=== PATIENT | male | born 1950 | race African-American/Black ===

== ENCOUNTER 2017-01-28 21:08 | Observation (INO) | payer OTHER ==
--- NOTE | 2017-01-28 21:18 | PDOC ---
History of Present Illness - General Chief Complaint: Blood Sugar Problem Stated Complaint: HIGH BLOOD SUGAR Time Seen by Provider: 01/28/17 21:10 History Source: Patient Exam Limitations: No Limitations - History of Present Illness Initial Comments: 01/28/17 22:16 This is a 66-year-old male who comes in complaining of elevated blood sugars times last 4-5 days. As per his daughter who brought him in she said that he Has been having blood sugars in the 3 to 400s. Patient is a type I diabetic and takes insulin for his sugar. Patient otherwise is been complaining of increased urination with the elevated blood sugars. Patient denies any fevers or chills. Patient denies any dysuria or hematuria. Patient denies any cough congestion shortness of breath. Daughter said she noticed that patient seems to be not himself. Patient said that he has been more fatigued and just not feeling well. PAST MEDICAL HISTORY: Type 1 diabetes, hyperlipidemia PAST SURGICAL HISTORY: no significant history FAMILY HISTORY: no pertinant history SOCIAL HISTORY: Pt lives with family and is employed. MEDICATIONS: reviewed ALLERGIES: As per nursing notes Review of Systems General: No fevers or chills, no weakness, no weight loss HEENT: No change in vision. No sore throat,. No ear pain CardioVascular: No chest pain or shortness of breath Respiratory:No cough, or wheezing. Gastrointestinal: no nausea, vomitting, diarrhea or constipation, No rectal bleeding Genitourinary: No dysuria, hematuria, or frequency Musculoskeletal: No joint or muscle pain or swelling Neurologic: No headache, vertigo, dizziness or loss of consciousness Psychiatric: nor depression Skin: No rashes or easy bruising Endocrine: no increased thirst or abnormal weight change Allergic: no skin or latex allergy All other systems reviewed and normal Exam: General: Well-nourished well-developed individual, no acute distress HEENT: Throat: Normal, tonsils normal, no erythema or exudate Neck: Supple, no meningeal signs, no lymphadenopathy Eyes::Pupils equal reactive and round, extraocular motion intact Chest: Nontender to palpation Cardiac: S1-S2 normal, regular rate and rhythm, no murmurs rubs or gallops Respiratory: Decreased breath sounds right base with a few rhonchi Abdomen: Soft, nondistended, normal bowel sounds, nontender to palpation diffusely Extremities: Warm, dry, no cyanosis, clubbing, or edema Skin: No rashes Neuro: Alert and oriented x3, nonfocal exam, grossly intact, normal gait Psych: Normal mood and affect Chest x-ray bilateral pneumonia right greater than left Assessment and plan: This is a 66-year-old male brought in by his daughter for evaluation of hyperglycemia that is been persistent over the last several days. On evaluation patient's chest x-ray revealed a bilateral infiltrate right greater than left. In addition to that it looks like he has a mild urinary tract infection. Patient had taken insulin prior to coming into the ER and his sugar here in the ER was 65. Patient given a little bit of orange juice. Patient started on ceftriaxone and azithromycin IV for the pneumonia and the ceftriaxone will also cover the urinary tract infection. Patient will be placed in observation for monitoring and stabilization of his sugars. Past History - Past Medical History Allergies/Adverse Reactions: Allergies Allergy/AdvReac Type Severity Reaction Status Date / Time No Known Allergies Allergy Verified 01/28/17 21:13 Home Medications: Ambulatory Orders Unobtainable [Unobtainable] 01/28/17 ED Treatment Course - LABORATORY CBC & Chemistry Diagram: 01/28/17 21:25 01/28/17 21:25 *DC/Admit/Observation/Transfer Diagnosis at time of Disposition: Dehydration, Cystitis Pneumonia Qualifiers: Pneumonia type: due to unspecified organism Laterality: bilateral Lung location : lower lobe of lung Qualified Code(s): J18.9 - Pneumonia, unspecified organism - Discharge Dispostion Condition at time of disposition: Stable Admit: Yes
[2017-01-28] MEDS ORDERED: SODIUM CHLORIDE 1,000 ML IV ONE (21:19)
[2017-01-28 21:39] LABS: MCHC 33.2 g/dl (32.0-35.9); MEAN CELL VOLUME 81.2 fl (80-96); MEAN PLT VOLUME 8.8 fl (7.5-11.1); PLATELET COUNT 359 K/MM3 (134-434); RDW 13.1 % (11.9-15.9); WHITE BLOOD COUNT 10.4 K/mm3 (4.0-10.8)
[2017-01-28 21:40] LABS: PH,URINE 5.5 (4.5-8); URINE BILIRUBIN 1+ (NEGATIVE); URINE GLUCOSE (UA) 2+ (NEGATIVE); URINE KETONE Trace (NEGATIVE); URINE LEUK ESTERASE Negative (NEGATIVE); URINE NITRITE Negative (NEGATIVE)
[2017-01-28 21:43] LABS: URINE APPEARANCE HAZY; URINE BLOOD Trace-intact (NEGATIVE); URINE COLOR YELLOW; URINE PROTEIN 1+ (NEGATIVE)
[2017-01-28 21:45] LABS: URINE BACTERIA FEW /hpf (NEGATIVE); URINE WBC 0-2 (3-5)
[2017-01-28 21:49] LABS: ALBUMIN 3.5 g/dl (3.5-5.0); ALK PHOS 96 U/L (32-92); ANION GAP 8 (8-16); BILIRUBIN,TOTAL 0.8 mg/dl (0.2-1.0); CALCIUM 9.3 mg/dl (8.4-10.2); CO2 30 mmol/L (22-28); GLUCOSE,RANDOM 65 mg/dl (74-106); SGOT/AST 36 U/L (10-42); SGPT/ALT 51 U/L (10-40)
[2017-01-28] MEDS ORDERED: CEFTRIAXONE 1 GM in DEXTROSE 5%-WATER - 50 ML IVPB ONE (22:00)
[2017-01-28] MEDS ORDERED: cefTRIAXone SODIUM 1 GM VIAL ONE (22:05)
[2017-01-28] MEDS ORDERED: AZITHROMYCIN 500 MG VIAL IVPB ONE (22:05)
[2017-01-28] MEDS ORDERED: AZITHROMYCIN IVPB 500 MG in DEXTROSE 5%-WATER - 250 ML IVPB ONE (22:06)
[2017-01-28 22:17] LABS: BASOPHIL (MANUAL) 2 % (0-2.0); PLATELET ESTIMATE SLT INCREASED (NORMAL)
--- NOTE | 2017-01-28 23:41 | HP ---
CHIEF COMPLAINT: elevated sugar, fatigue PCP: Sukhdev Harrington, Endocrine: Sukhdev Butler HISTORY OF PRESENT ILLNESS: This is a 66 year old male with a past medical history of DM since age 12, HLD who presented to the ED for elevated sugars into 300s-400s for the past 5-6 days. He reports that he took extra insulin this evening and came here. He denies any specific complaints but reports increased fatigue and not feeling himself. He states that when his sugar is elevated like this he usually has an infection. ER course was notable for: (1) CXR with RLL opacity c/w PNA (2) WBC 10.4 Recent Travel: pt denies PAST MEDICAL HISTORY: DM HLD PAST SURGICAL HISTORY: pt denies Social History: Smoking: pt denies Alcohol: pt denies Drugs: pt denies Family History: mother age 87, heart failure, Alz father 75, complications of "late onset" DM 2 sisters alive and well 4 children-2 boys, 2 girls alive and well Allergies No Known Allergies Allergy (Verified 01/28/17 21:13) HOME MEDICATIONS: 3 Medication Instructions Recorded Aspirin [ASA -] 81 mg PO DAILY 01/28/17 Insulin NPH [Novolin N Vial] 30 units SQ AM 01/28/17 Insulin Regular [NovoLIN R] 20 units SQ AM 01/28/17 Simvastatin [Zocor -] 40 mg PO HS 01/28/17 REVIEW OF SYSTEMS CONSTITUTIONAL: Present: generalized weakness, malaise Absent: fever, chills, diaphoresis, loss of appetite, weight change HEENT: Absent: rhinorrhea, nasal congestion, throat pain, throat swelling, difficulty swallowing, mouth swelling, ear pain, eye pain, visual changes CARDIOVASCULAR: Absent: chest pain, syncope, palpitations, irregular heart rate, lightheadedness , peripheral edema RESPIRATORY: Absent: cough, shortness of breath, dyspnea with exertion, orthopnea, wheezing, stridor, hemoptysis GASTROINTESTINAL: Absent: abdominal pain, abdominal distension, nausea, vomiting, diarrhea, constipation, melena, hematochezia GENITOURINARY: Absent: dysuria, frequency, urgency, hesitancy, hematuria, flank pain, genital pain MUSCULOSKELETAL: Absent: myalgia, arthralgia, joint swelling, back pain, neck pain SKIN: Absent: rash, itching, pallor HEMATOLOGIC/IMMUNOLOGIC: Absent: easy bleeding, easy bruising, lymphadenopathy, frequent infections ENDOCRINE: Absent: unexplained weight gain, unexplained weight loss, heat intolerance, cold intolerance NEUROLOGIC: Absent: headache, focal weakness or paresthesias, dizziness, unsteady gait, seizure, mental status changes, bladder or bowel incontinence PSYCHIATRIC: Absent: anxiety, depression, suicidal or homicidal ideation, hallucinations. PHYSICAL EXAMINATION Vital Signs - 24 hr 3 01/28/17 21:37 Temperature 98.1 F Pulse Rate 88 Respiratory 16 Rate Blood Pressure 143/90 O2 Sat by Pulse 100 Oximetry (%) GENERAL: Awake, alert, and fully oriented, in no acute distress. HEAD: Normal with no signs of trauma. EYES: Pupils equal, round and reactive to light, extraocular movements intact, sclera anicteric, conjunctiva clear. No lid lag. EARS, NOSE, THROAT: Ears normal, nares patent, oropharynx clear without exudates. Moist mucous membranes. NECK: Normal range of motion, supple without lymphadenopathy, JVD, or masses. LUNGS: Breath sounds equal, clear to auscultation bilaterally. No wheezes, and no crackles. No accessory muscle use. HEART: Regular rate and rhythm, normal S1 and S2 without murmur, rub or gallop. ABDOMEN: Soft, nontender, not distended, normoactive bowel sounds, no guarding, no rebound, no masses. No hepatomegaly or splenomegaly. MUSCULOSKELETAL: Normal range of motion at all joints. No bony deformities or tenderness. No CVA tenderness. UPPER EXTREMITIES: 2+ pulses, warm, well-perfused. No cyanosis. No clubbing. No peripheral edema. LOWER EXTREMITIES: 2+ pulses, warm, well-perfused. No calf tenderness. No peripheral edema. NEUROLOGICAL: Cranial nerves II-XII intact. Normal speech. Normal gait. PSYCHIATRIC: Cooperative. Good eye contact. Appropriate mood and affect. SKIN: Warm, dry, normal turgor, no rashes or lesions noted, normal capillary refill. Laboratory Results - last 24 hr 3 01/28/17 01/28/17 01/28/17 21:25 21:25 21:35 WBC 10.4 RBC 4.84 Hgb 13.1 Hct 39.3 MCV 81.2 MCH 27.0 MCHC 33.2 RDW 13.1 Plt Count 359 MPV 8.8 Neutrophils % No Result Required. Neutrophils % (Manual) 60 Band Neuts % (Manual) 1 Lymphocytes % No Result Required. Lymphocytes % (Manual) 29 Monocytes % (Manual) 6 Eosinophils % (Manual) 2 Basophils % (Manual) 2 Platelet Estimate Slt increased Platelet Comment Few large plts Sodium 135 L Potassium 3.8 Chloride 97 L Carbon Dioxide 30 H Anion Gap 8 BUN 19 H Creatinine 1.0 Creat Clearance w eGFR > 60 Random Glucose 65 L Calcium 9.3 Total Bilirubin 0.8 AST 36 ALT 51 H Alkaline Phosphatase 96 H Total Protein 8.0 Albumin 3.5 Urine Color Yellow Urine Appearance Hazy Urine pH 5.5 Ur Specific Ferguson 1.025 Urine Protein 1+ H Urine Glucose (UA) 2+ H Urine Ketones Trace Urine Blood Trace-intact H Urine Nitrite Negative Urine Bilirubin 1+ H Urine Urobilinogen 2.0 Ur Leukocyte Esterase Negative Urine RBC 1-2 Urine WBC 0-2 Urine Bacteria Few Radiology Reports Chest x-ray - PA and lateral views Indication: Hyperglycemia. Comparison: None. Findings: There is a hazy opacity in the right lower lobe without silhouetting of the diaphragm, best seen on the lateral film. There is no evidence of pulmonary vascular congestion, pleural effusion or pneumothorax. No abnormal deviation of the trachea. Normal size and contours of the cardiomediastinal silhouette. The hilar regions are grossly unremarkable. Impression: Hazy right lower lobe opacity is compatible with pneumonia in the proper clinical setting. Follow- up 2 view chest x-ray is recommended after completion of therapy to exclude other processes. Reported By: Umberto Cabrales MD 01/28/17 2202 ECG sinus rhythm, vent rate 78 Prolonged QT, QTC 481 TWI lead 3, flat aVF ? missed beat ASSESSMENT/PLAN: 66yM with PMH DM, HLD presented to ED with uncontrolled sugars. CXR revealed RLL opacity compatible with PNA. He is being admitted for further evaluation and treatment. Pneumonia-community acquired - given ceftriaxone and zithromax in ED, cont same - monitor ox sat periodically, WNL at present - consider CT chest for further evaluation given benign PE and absence of WBC , fever DM - BGM ACHS with novolog sliding scale - will convert NPH to formulary levemir and regular to novolog - pt states he only takes insulin in the AM, not PM and typically only checks his sugars in the AM. HLD - home zocor to be changed to formular levemir DVT PPX - heparin 5000u TID - ambulation encouraged FEN - pt tolerating po without issue - BMP in am - diabetic diet as tolerated Dispo: pt currently requires overnight inpatient monitoring for management of his emergent condition. Visit type - Emergency Visit Emergency Visit: Yes ED Registration Date: 01/28/17 Care time: The patient presented to the Emergency Department on the above date and was hospitalized for further evaluation of their emergent condition. - New Patient This patient is new to me today: Yes Date on this admission: 01/28/17 - Critical Care Critical Care patient: No
[2017-01-29 00:46] VITALS: BMI 22.1
[2017-01-29] MEDS: HEPARIN NA (PORCINE) 5,000 UNITS/ML 1ML VIAL SQ SCH ×3 (01:50→17:44)
[2017-01-29] MEDS ORDERED: INSULIN SLIDING SCALE (NOVOLOG) 1 VIAL SQ SCH ×2 (07:00→11:00)
[2017-01-29] MEDS ORDERED: INSULIN DETEMIR 100 UNITS/ML MDV SQ SCH (07:00)
[2017-01-29 08:26] LABS: BASOPHIL 1.5 % (0-2.0); EOSINOPHIL 2.5 % (0-4.5); MCH 27.2 pg (25.7-33.7); MCHC 33.5 g/dl (32.0-35.9); MEAN CELL VOLUME 81.4 fl (80-96); NEUTROPHILS 63.5 % (42.8-82.8); PLATELET COUNT 305 K/MM3 (134-434); RDW 13.3 % (11.9-15.9); WHITE BLOOD COUNT 9.1 K/mm3 (4.0-10.8)
[2017-01-29 08:41] LABS: ANION GAP 7 (8-16); CALCIUM 8.5 mg/dl (8.4-10.2); CO2 27 mmol/L (22-28); CREATININE 0.9 mg/dl (0.6-1.3); GLUCOSE,RANDOM 114 mg/dl (74-106); MAGNESIUM 2.1 mg/dL (1.8-2.4); PHOSPHOROUS 3.4 mg/dl (2.5-4.6)
--- NOTE | 2017-01-29 09:04 | EKG ---
Test Reason : Blood Pressure : / mmHG Vent. Rate : 078 BPM Atrial Rate : 078 BPM P-R Int : 128 ms QRS Dur : 090 ms QT Int : 400 ms P-R-T Axes : 057 -02 001 degrees QTc Int : 456 ms SINUS RHYTHM with non-conducted PAC NO PREVIOUS ECGS AVAILABLE Confirmed by JOANNE AYERS MD ([id number]) on 01/29/2017 9:04:14 AM Referred By: MD YOUNG Confirmed By:JOANNE AYERS MD
--- NOTE | 2017-01-29 09:24 | PN ---
Physical Exam: SUBJECTIVE: Patient seen and examined, patient reports feeling tired, denies any chest pain or shortness of breath. OBJECTIVE: Patient is a 66 y/o male with a past medical history of IDDM and hyperlipidemia. Patient was admitted from the emergency department for hyperglycemia and right PNA. Vital Signs Period Temp Pulse Resp BP Sys/Stallworth Pulse Ox Last 24 Hr 98 F-98.2 F 81-86 18-20 102-115/47-56 97-97 GENERAL: thin, awake, alert, and fully oriented, in no acute distress. HEAD: Normal with no signs of trauma. EYES: PERRL, extraocular movements intact, sclera anicteric, conjunctiva clear. No ptosis. ENT: Ears normal, nares patent, oropharynx clear without exudates, moist mucous membranes. NECK: Trachea midline, full range of motion, supple. LUNGS: Breath sounds equal, clear to auscultation bilaterally, no wheezes, no crackles, no accessory muscle use. HEART: Regular rate and rhythm, S1, S2 without murmur, rub or gallop. ABDOMEN: Soft, nontender, nondistended, normoactive bowel sounds, no guarding, no rebound, no hepatosplenomegaly, no masses. EXTREMITIES: 2+ pulses, warm, well-perfused, no edema. NEUROLOGICAL: Cranial nerves II through XII grossly intact. Normal speech, gait not observed. PSYCH: Normal mood, normal affect. SKIN: Warm, dry, normal turgor, no rashes or lesions noted Laboratory Results - last 24 hr 01/29/17 01/29/17 01/29/17 06:02 06:35 07:00 WBC 9.1 RBC 4.14 Hgb 11.3 L D Hct 33.7 L MCV 81.4 MCH 27.2 MCHC 33.5 RDW 13.3 Plt Count 305 MPV 9.0 Neutrophils % 63.5 Lymphocytes % 24.5 Monocytes % 8.0 Eosinophils % 2.5 Basophils % 1.5 Sodium Potassium Chloride Carbon Dioxide Anion Gap BUN Creatinine POC Glucometer 43 93 Random Glucose Calcium Phosphorus Magnesium 01/29/17 01/29/17 07:00 07:55 WBC RBC Hgb Hct MCV MCH MCHC RDW Plt Count MPV Neutrophils % Lymphocytes % Monocytes % Eosinophils % Basophils % Sodium 133 L Potassium 4.2 Chloride 99 Carbon Dioxide 27 Anion Gap 7 L BUN 14 D Creatinine 0.9 POC Glucometer 117 Random Glucose 114 H D Calcium 8.5 Phosphorus 3.4 Magnesium 2.1 Active Medications Generic Name Dose Route Start Last Admin Trade Name Grzegorz PRN Reason Stop Dose Admin Aspirin 81 mg 01/29/17 10:00 Asa - PO DAILY [facility] Atorvastatin Calcium 20 mg 01/29/17 22:00 Lipitor - PO HS ELEAZAR Heparin Sodium (Porcine) 5,000 unit 01/29/17 02:00 01/29/17 01:50 Heparin - SQ 5,000 unit Q8H ELEAZAR Administration Azithromycin 250 mls @ 250 mls/hr 01/29/17 22:00 Zithromax 500mg Ivpb (Pre-Docked) IVPB HS ELEAZAR Ceftriaxone Sodium 50 mls @ 100 mls/hr 01/29/17 22:00 Rocephin 1gm Ivpb (Pre-Docked) IVPB HS ELE[facility]AR Insulin Aspart 0 vial 01/29/17 07:00 01/29/17 06:36 Novolog Vial Sliding Scale - SQ Not Given ACHS [facility] Protocol Radiology Reports Chest x-ray - PA and lateral views Indication: Hyperglycemia. Comparison: None. Findings: There is a hazy opacity in the right lower lobe without silhouetting of the diaphragm, best seen on the lateral film. There is no evidence of pulmonary vascular congestion, pleural effusion or pneumothorax. No abnormal deviation of the trachea. Normal size and contours of the cardiomediastinal silhouette. The hilar regions are grossly unremarkable. Impression: Hazy right lower lobe opacity is compatible with pneumonia in the proper clinical setting. Follow- up 2 view chest x-ray is recommended after completion of therapy to exclude other processes. 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
[2017-01-29] MEDS: ASPIRIN 81 MG CHEWABLE TABLETS PO SCH (10:11)
[2017-01-29] MEDS: INSULIN DETEMIR 100 UNITS/ML MDV SQ SCH (10:11)
--- NOTE | 2017-01-29 10:47 | PN ---
Progress Note (short form) - Note Progress Note: PULMONARY CONSULTATION DICTATED 01/29/17 IMP RML PNEUMONIA HYPERGLYCEMIA HYPONATREMIA WEAKNESS PLAN IV ANTIBIOTICS CULTURES GLYCEMIC CONTROL MONITOR LYTES,NA IVF F/U CHEST X-RAYS TO DOCUMENT RESOLUTION OF INFILTRATES DR BRUMFIELD Problem List - Problems (1) Dehydration Code(s): E86.0 - DEHYDRATION (2) Pneumonia Code(s): J18.9 - PNEUMONIA, UNSPECIFIED ORGANISM Qualifiers: Pneumonia type: due to unspecified organism Laterality: bilateral Lung location: lower lobe of lung Qualified Code(s): J18.9 - Pneumonia, unspecified organism; J18.9 - Pneumonia, unspecified organism (3) Diabetes 1.5, managed as type 1 Code(s): E10.9 - TYPE 1 DIABETES MELLITUS WITHOUT COMPLICATIONS (4) Hyperglycemia Code(s): R73.9 - HYPERGLYCEMIA, UNSPECIFIED (5) Weakness Code(s): R53.1 - WEAKNESS
[2017-01-29] MEDS ORDERED: ALBUTEROL SO4 0.083% IH SOL 2.5 MG/3 ML VIAL.NEB. NEB PRN (11:28)
[2017-01-29] MEDS ORDERED: INSULIN (NOVOLOG) ASPART 100 UNITS/ML 10ML VIAL ONE (12:16)
[2017-01-29] MEDS: LACTOBACILLUS ACIDOPHILUS 1 EACH TAB (FP) PO SCH (12:33)
[2017-01-29] MEDS: INSULIN SLIDING SCALE (NOVOLOG) 1 VIAL SQ SCH ×3 (12:33→21:29)
[2017-01-29] MEDS: ATORVASTATIN CA 20 MG TABLET (FP) PO SCH (21:31)
[2017-01-29] MEDS: CEFTRIAXONE 50 ML IVPB SCH (21:31)
[2017-01-29] MEDS ORDERED: CEFTRIAXONE 1 G/50 ML PREMIX 50 ML IVPB SCH (22:00)
[2017-01-29] MEDS: AZITHROMYCIN IVPB 250 ML IVPB SCH (22:11)
[2017-01-30] MEDS: HEPARIN NA (PORCINE) 5,000 UNITS/ML 1ML VIAL SQ SCH ×3 (01:27→17:05)
[2017-01-30] MEDS: INSULIN SLIDING SCALE (NOVOLOG) 1 VIAL SQ SCH ×4 (06:28→21:52)
[2017-01-30] MEDS: INSULIN DETEMIR 100 UNITS/ML MDV SQ SCH (06:53)
--- NOTE | 2017-01-30 07:31 | PN ---
Progress Note, Physician History of Present Illness: PULMONARY ALERT,NAD,FEELING BETTER,-CP,-SOB - Current Medication List Current Medications: Active Medications Albuterol Sulfate (Ventolin 0.083% Nebulizer Soln -) 1 amp NEB Q4H PRN PRN Reason: SHORT OF BREATH/WHEEZING Aspirin (Asa -) 81 mg PO DAILY [facility] Last Admin: 01/29/17 10:11 Dose: 81 mg Atorvastatin Calcium (Lipitor -) 20 mg PO HS [facility] Last Admin: 01/29/17 21:31 Dose: 20 mg Heparin Sodium (Porcine) (Heparin -) 5,000 unit SQ Q8H [facility] Last Admin: 01/30/17 01:27 Dose: 5,000 unit Azithromycin (Zithromax 500mg Ivpb (Pre-Docked)) 250 mls @ 250 mls/hr IVPB [facility] Last Admin: 01/29/17 22:11 Dose: 250 mls/hr Ceftriaxone Sodium (Rocephin 1gm Ivpb (Pre-Docked)) 50 mls @ 100 mls/hr IVPB [facility] Last Admin: 01/29/17 21:31 Dose: 100 mls/hr Insulin Aspart (Novolog Vial Sliding Scale -) 1 vial SQ ACHS [facility] PRN Reason: Protocol Last Admin: 01/30/17 06:28 Dose: Not Given Insulin Detemir (Levemir Vial) 30 units SQ AM [facility] Last Admin: 01/30/17 06:53 Dose: 30 unit Lactobacillus Acidophilus (Bacid -) 1 tab PO DAILY [facility] Last Admin: 01/29/17 12:33 Dose: 1 tab - Objective Vital Signs: Vital Signs Temperature 98.0 F 01/30/17 06:00 Pulse Rate 80 01/30/17 06:00 Respiratory Rate 18 01/30/17 06:27 Blood Pressure 105/60 01/30/17 06:00 O2 Sat by Pulse Oximetry (%) 97 01/30/17 06:27 Constitutional: Yes: Calm, Thin Eyes: Yes: WNL HENT: Yes: WNL Neck: Yes: WNL Cardiovascular: Yes: Regular Rate and Rhythm, S1, S2 Respiratory: Yes: CTA Bilaterally Gastrointestinal: Yes: Normal Bowel Sounds, Soft Extremities: Yes: WNL Edema: No Labs: - ....Imaging Cat Scan: Report Reviewed, Image Reviewed Problem List - Problems (1) Dehydration Code(s): E86.0 - DEHYDRATION (2) Pneumonia Code(s): J18.9 - PNEUMONIA, UNSPECIFIED ORGANISM Qualifiers: Pneumonia type: due to unspecified organism Laterality: bilateral Lung location: lower lobe of lung Qualified Code(s): J18.9 - Pneumonia, unspecified organism; J18.9 - Pneumonia, unspecified organism (3) Diabetes 1.5, managed as type 1 Code(s): E10.9 - TYPE 1 DIABETES MELLITUS WITHOUT COMPLICATIONS (4) Hyperglycemia Code(s): R73.9 - HYPERGLYCEMIA, UNSPECIFIED (5) Weakness Code(s): R53.1 - WEAKNESS Assessment/Plan IMP RML PNEUMONIA HYPERGLYCEMIA HYPONATREMIA WEAKNESS PLAN IV ANTIBIOTICS GLYCEMIC CONTROL MONITOR LYTES,NA IVF F/U CHEST X-RAYS TO DOCUMENT RESOLUTION OF INFILTRATES DR BRUMFIELD Problem List - Problems (1) Dehydration Code(s): E86.0 - DEHYDRATION (2) Pneumonia Code(s): J18.9 - PNEUMONIA, UNSPECIFIED ORGANISM Qualifiers: Pneumonia type: due to unspecified organism Laterality: bilateral Lung location: lower lobe of lung Qualified Code(s): J18.9 - Pneumonia, unspecified organism; J18.9 - Pneumonia, unspecified organism (3) Diabetes 1.5, managed as type 1 Code(s): E10.9 - TYPE 1 DIABETES MELLITUS WITHOUT COMPLICATIONS (4) Hyperglycemia Code(s): R73.9 - HYPERGLYCEMIA, UNSPECIFIED (5) Weakness Code(s): R53.1 - WEAKNESS
--- NOTE | 2017-01-30 09:04 | CONS ---
PULMONARY CONSULTATION DATE OF CONSULTATION: 01/29/2017 REFERRING PHYSICIAN: Sydnee Hewitt NP HISTORY OF PRESENT ILLNESS: The patient is a 66-year-old black male with a past medical history of insulin dependent diabetes mellitus since age 12, who is a nonsmoker, admitted to [facility] with complaint of 1 week history of elevated blood sugars. The patient states for the past week or so he started noticing elevated blood sugars requiring more insulin. He has also complained of increasing fatigue and just not feeling himself. He felt that his sugars were elevated secondary to an underlying infection. He denied any fevers or chills. He denied any shortness of breath, cough, or hemoptysis. He denied abdominal pain. He presented to the emergency room with the above. In the emergency room he had a chest x-ray performed, which revealed a right lower lobe opacity. He was admitted to the floor and started on antibiotic therapy. He is a nonsmoker. There is no history of occupational exposure to chemicals or fumes. He denies any fevers or chills. He denies any cough. He denies any chest pain. He denies any night sweats. The patient underwent a CT scan of the chest earlier today, which reveals a right lower lobe infiltrate. PAST MEDICAL HISTORY: Again includes: 1. Insulin dependent diabetes mellitus. 2. Hyperlipidemia. SOCIAL HISTORY: Nonsmoker. No occupational exposures. No recent travel. He denies any pets in the home. No sick contacts. REVIEW OF SYSTEMS: No orthopnea. No PND. No chest pain. No palpitations. No shortness of breath. No cough. Positive weakness. No fevers. No chills. No abdominal pain. CURRENT MEDICATIONS: Includes: 1. Ceftriaxone. 2. Heparin. 3. Lipitor. 4. NovoLog. 5. Levemir. 6. Aspirin. PHYSICAL EXAMINATION: General: The patient is a thin, black male, awake, alert, in no acute distress. Vital Signs: He is afebrile. Blood pressure of 115/50, respiratory rate of 20 , and O2 saturation of 97% on room air. HEENT: Normocephalic, atraumatic. Neck: Supple. Heart: Regular. Chest: Clear. Abdomen: Soft, bowel sounds positive. Extremities: No cyanosis or edema. LABORATORY DATA: WBCs of 9.1, hemoglobin 8.3, hematocrit 33.7, and platelet count of 305,000. Sodium of 133, glucose of 114, alkaline phosphatase of 96, and ALT of 51. DIAGNOSTIC DATA: Chest CT is noted earlier. IMPRESSION: 1. Pneumonia, right lower lobe, community-acquired. 2. Hyperglycemia. PLAN: Antibiotic therapy. Supplemental O2. Culture sputum for culture and sensitivity. Obtain followup chest x-ray to document resolution of infiltrates. Also glycemic control. ULISES BRUMFIELD M.D. /[id number] MTDD
[2017-01-30] MEDS: ASPIRIN 81 MG CHEWABLE TABLETS PO SCH (09:43)
[2017-01-30] MEDS: LACTOBACILLUS ACIDOPHILUS 1 EACH TAB (FP) PO SCH (09:43)
[2017-01-30] MEDS ORDERED: INSULIN (NOVOLOG) ASPART 100 UNITS/ML 10ML VIAL ONE (11:53)
--- NOTE | 2017-01-30 12:54 | PN ---
Physical Exam: SUBJECTIVE: Patient seen and examined, reports feeling better, denies any chest pain or shortness of breath. OBJECTIVE: Patient is a 66 y/o male with a past medical history of IDDM and hyperlipidemia. Patient was admitted from the emergency department for hyperglycemia and right PNA. Vital Signs Period Temp Pulse Resp BP Sys/Stallworth Pulse Ox Last 24 Hr 98.0 F-98.2 F 77-91 18-18 105-122/54-73 97-98 GENERAL: The patient is awake, alert, and fully oriented, in no acute distress. HEAD: Normal with no signs of trauma. EYES: PERRL, extraocular movements intact, sclera anicteric, conjunctiva clear. No ptosis. ENT: Ears normal, nares patent, oropharynx clear without exudates, moist mucous membranes. NECK: Trachea midline, full range of motion, supple. LUNGS: Breath sounds equal, clear to auscultation bilaterally, no wheezes, no crackles, no accessory muscle use. HEART: Regular rate and rhythm, S1, S2 without murmur, rub or gallop. ABDOMEN: Soft, nontender, nondistended, normoactive bowel sounds, no guarding, no rebound, no hepatosplenomegaly, no masses. EXTREMITIES: 2+ pulses, warm, well-perfused, no edema. NEUROLOGICAL: Cranial nerves II through XII grossly intact. Normal speech, gait not observed. PSYCH: Normal mood, normal affect. SKIN: Warm, dry, normal turgor, no rashes or lesions noted Laboratory Results - last 24 hr 01/29/17 01/29/17 01/30/17 16:55 20:59 05:50 POC Glucometer 138 209 116 01/30/17 11:01 POC Glucometer 303 Active Medications Generic Name Dose Route Start Last Admin Trade Name Freq PRN Reason Stop Dose Admin Albuterol Sulfate 1 amp 01/29/17 11:28 Ventolin 0.083% Nebulizer Soln - NEB Q4H PRN SHORT OF BREATH/WHEEZING Aspirin 81 mg 01/29/17 10:00 01/30/17 09:43 Asa - PO 81 mg DAILY ELEAZAR Administration Atorvastatin Calcium 20 mg 01/29/17 22:00 01/29/17 21:31 Lipitor - PO 20 mg HS ELEAZAR Administration Heparin Sodium (Porcine) 5,000 unit 01/29/17 02:00 01/30/17 09:43 Heparin - SQ 5,000 unit Q8H ELEAZAR Administration Azithromycin 250 mls @ 250 mls/hr 01/29/17 22:00 01/29/17 22:11 Zithromax 500mg Ivpb (Pre-Docked) IVPB 250 mls/hr HS ELEAZAR Administration Ceftriaxone Sodium 50 mls @ 100 mls/hr 01/29/17 22:00 01/29/17 21:31 Rocephin 1gm Ivpb (Pre-Docked) IVPB 100 mls/hr HS ELEAZAR Administration Insulin Aspart 1 vial 01/29/17 12:26 01/30/17 11:56 Novolog Vial Sliding Scale - SQ 8 units ACHS ELEAZAR Administration Protocol Insulin Detemir 30 units 01/29/17 11:00 01/30/17 06:53 Levemir Vial SQ 30 unit AM ELEAZAR Administration Lactobacillus Acidophilus 1 tab 01/29/17 12:00 01/30/17 09:43 Bacid - PO 1 tab DAILY ELEAZAR Administration Radiology Reports Chest x-ray - PA and lateral views Indication: Hyperglycemia. Comparison: None. Findings: There is a hazy opacity in the right lower lobe without silhouetting of the diaphragm, best seen on the lateral film. There is no evidence of pulmonary vascular congestion, pleural effusion or pneumothorax. No abnormal deviation of the trachea. Normal size and contours of the cardiomediastinal silhouette. The hilar regions are grossly unremarkable. Impression: Hazy right lower lobe opacity is compatible with pneumonia in the proper clinical setting. Follow- up 2 view chest x-ray is recommended after completion of therapy to exclude other processes. Reported By: Umberto Cabrales MD 01/28/175 CT of chest: right middle lobe PNA ECG sinus rhythm, vent rate 78 Prolonged QT, QTC 481 TWI lead 3, flat aVF ASSESSMENT/PLAN: 1) Pulm Pneumonia-community acquired - continue rocephin and zithromax - pending urine antigens - keep spo2 above 92% with supplemental O2 - pulmonary consulted and following 3) endo IDDM - BGM ACHS with novolog sliding scale - continue levermir (subsitute or nph) - hemoglobin a1c 9.4 4) card HLD - continue lipitor, LFT's wnl DVT PPX - heparin 5000u TID - ambulation encouraged FEN - pt tolerating po without issue - BMP in am - diabetic diet as tolerated Dispo: pt currently requires overnight inpatient monitoring for management of his emergent condition.
[2017-01-30] MEDS: ATORVASTATIN CA 20 MG TABLET (FP) PO SCH (21:51)
[2017-01-30] MEDS: CEFTRIAXONE 50 ML IVPB SCH (21:51)
[2017-01-30] MEDS: AZITHROMYCIN IVPB 250 ML IVPB SCH (22:32)
[2017-01-31] MEDS: HEPARIN NA (PORCINE) 5,000 UNITS/ML 1ML VIAL SQ SCH ×2 (02:05→09:20)
[2017-01-31 05:59] VITALS: BP 119/60; PULSE 66; TEMP 98
[2017-01-31] MEDS: INSULIN SLIDING SCALE (NOVOLOG) 1 VIAL SQ SCH ×2 (07:06→11:26)
--- NOTE | 2017-01-31 07:42 | PN ---
Progress Note, Physician History of Present Illness: pulmonary alert,doing well,-sob,-cough - Current Medication List Current Medications: Active Medications Albuterol Sulfate (Ventolin 0.083% Nebulizer Soln -) 1 amp NEB Q4H PRN PRN Reason: SHORT OF BREATH/WHEEZING Aspirin (Asa -) 81 mg PO DAILY [facility] Last Admin: 01/30/17 09:43 Dose: 81 mg Atorvastatin Calcium (Lipitor -) 20 mg PO HS [facility] Last Admin: 01/30/17 21:51 Dose: 20 mg Heparin Sodium (Porcine) (Heparin -) 5,000 unit SQ Q8H [facility] Last Admin: 01/31/17 02:05 Dose: 5,000 unit Azithromycin (Zithromax 500mg Ivpb (Pre-Docked)) 250 mls @ 250 mls/hr IVPB [facility] Last Admin: 01/30/17 22:32 Dose: 250 mls/hr Ceftriaxone Sodium (Rocephin 1gm Ivpb (Pre-Docked)) 50 mls @ 100 mls/hr IVPB [facility] Last Admin: 01/30/17 21:51 Dose: 100 mls/hr Insulin Aspart (Novolog Vial Sliding Scale -) 1 vial SQ ACHS [facility] PRN Reason: Protocol Last Admin: 01/31/17 07:06 Dose: Not Given Insulin Detemir (Levemir Vial) 30 units SQ AM [facility] Last Admin: 01/30/17 06:53 Dose: 30 unit Lactobacillus Acidophilus (Bacid -) 1 tab PO DAILY [facility] Last Admin: 01/30/17 09:43 Dose: 1 tab - Objective Vital Signs: Vital Signs Temperature 98.0 F 01/31/17 05:58 Pulse Rate 66 01/31/17 05:58 Respiratory Rate 18 01/31/17 05:58 Blood Pressure 119/60 01/31/17 05:58 O2 Sat by Pulse Oximetry (%) 98 01/31/17 05:58 Constitutional: Yes: Well Nourished, Calm Eyes: Yes: WNL HENT: Yes: WNL Neck: Yes: WNL Cardiovascular: Yes: Regular Rate and Rhythm, S1, S2 Respiratory: Yes: CTA Bilaterally Gastrointestinal: Yes: Normal Bowel Sounds, Soft Extremities: Yes: WNL Edema: No Labs: - ....Imaging Chest X-ray: Report Reviewed, Image Reviewed Problem List - Problems (1) Dehydration Code(s): E86.0 - DEHYDRATION (2) Pneumonia Code(s): J18.9 - PNEUMONIA, UNSPECIFIED ORGANISM Qualifiers: Pneumonia type: due to unspecified organism Laterality: bilateral Lung location: lower lobe of lung Qualified Code(s): J18.9 - Pneumonia, unspecified organism; J18.9 - Pneumonia, unspecified organism (3) Diabetes 1.5, managed as type 1 Code(s): E10.9 - TYPE 1 DIABETES MELLITUS WITHOUT COMPLICATIONS (4) Hyperglycemia Code(s): R73.9 - HYPERGLYCEMIA, UNSPECIFIED (5) Weakness Code(s): R53.1 - WEAKNESS Assessment/Plan IMP RML PNEUMONIA CLINICALLY IMPROVING HYPERGLYCEMIA HYPONATREMIA WEAKNESS PLAN ANTIBIOTICS GLYCEMIC CONTROL F/U CHEST X-RAYS TO DOCUMENT RESOLUTION OF INFILTRATES DR BRUMFIELD Problem List - Problems (1) Dehydration Code(s): E86.0 - DEHYDRATION (2) Pneumonia Code(s): J18.9 - PNEUMONIA, UNSPECIFIED ORGANISM Qualifiers: Pneumonia type: due to unspecified organism Laterality: bilateral Lung location: lower lobe of lung Qualified Code(s): J18.9 - Pneumonia, unspecified organism; J18.9 - Pneumonia, unspecified organism (3) Diabetes 1.5, managed as type 1 Code(s): E10.9 - TYPE 1 DIABETES MELLITUS WITHOUT COMPLICATIONS (4) Hyperglycemia Code(s): R73.9 - HYPERGLYCEMIA, UNSPECIFIED (5) Weakness Code(s): R53.1 - WEAKNESS
[2017-01-31] MEDS: INSULIN DETEMIR 100 UNITS/ML MDV SQ SCH (08:04)
[2017-01-31] MEDS: ASPIRIN 81 MG CHEWABLE TABLETS PO SCH (09:20)
[2017-01-31] MEDS: LACTOBACILLUS ACIDOPHILUS 1 EACH TAB (FP) PO SCH (09:20)
--- NOTE | 2017-01-31 11:12 | DS ---
Physical Exam: SUBJECTIVE: Patient seen and examined, ambulatory at bedside, denies any chest pain or shortness of breath OBJECTIVE: patient is a 66 year old male with a past medical history of DM since age 12, HLD who presented to the ED for elevated sugars into 300s-400s for the past 5-6 days. He reports that he took extra insulin this evening and came here. He denies any specific complaints but reports increased fatigue and not feeling himself. He states that when his sugar is elevated like this he usually has an infection. ER course was notable for: (1) CXR with RLL opacity c/w PNA (2) WBC 10.4 Vital Signs Period Temp Pulse Resp BP Sys/Stallworth Pulse Ox Last 24 Hr 98.0 F-98.2 F 66-82 18-18 119-138/60-70 98-100 PHYSICAL EXAM GENERAL: The patient is awake, alert, and fully oriented, in no acute distress. HEAD: Normal with no signs of trauma. EYES: PERRL, extraocular movements intact, sclera anicteric, conjunctiva clear. ENT: Ears normal, nares patent, oropharynx clear without exudates, moist mucous membranes. NECK: Trachea midline, full range of motion, supple. LUNGS: Breath sounds equal, clear to auscultation bilaterally, no wheezes, no crackles, no accessory muscle use. HEART: Regular rate and rhythm, S1, S2 without murmur, rub or gallop. ABDOMEN: Soft, nontender, nondistended, normoactive bowel sounds, no guarding, no rebound, no hepatosplenomegaly, no masses. EXTREMITIES: 2+ pulses, warm, well-perfused, no edema. NEUROLOGICAL: Cranial nerves II through XII grossly intact. Normal speech, gait not observed. PSYCH: Normal mood, normal affect. SKIN: Warm, dry, normal turgor, no rashes or lesions noted. LABS Laboratory Results - last 24 hr 01/30/17 01/30/17 01/30/17 11:01 16:21 21:45 POC Glucometer 303 194 163 01/31/17 06:47 POC Glucometer 98 CBC WBC 9.1 K/mm3 (4.0-10.8) 01/29/17 07:00 RBC 4.14 M/mm3 (4.00-5.60) 01/29/17 07:00 Hgb 11.3 GM/dl (11.7-16.9) L D 01/29/17 07:00 Hct 33.7 % (35.4-49) L 01/29/17 07:00 MCV 81.4 fl (80-96) 01/29/17 07:00 MCH 27.2 pg (25.7-33.7) 01/29/17 07:00 MCHC 33.5 g/dl (32.0-35.9) 01/29/17 07:00 RDW 13.3 % (11.9-15.9) 01/29/17 07:00 Plt Count 305 K/MM3 (134-434) 01/29/17 07:00 MPV 9.0 fl (7.5-11.1) 01/29/17 07:00 Neutrophils % 63.5 % (42.8-82.8) 01/29/17 07:00 Neutrophils % (Manual) 60 % (42.8-82.8) 01/28/17: Band Neuts % (Manual) 1 % (0-10) 01/28/17 21: Lymphocytes % 24.5 % (8-40) 01/29/17 07:00 Lymphocytes % (Manual) 29 % (8-40) 01/28/17: Monocytes % 8.0 % (3.8-10.2) 01/29/17 07:00 Monocytes % (Manual) 6 % (3.8-10.2) 01/28/17: Eosinophils % 2.5 % (0-4.5) 01/29/17 07:00 Eosinophils % (Manual) 2 % (0-4.5) 01/28/17 21: Basophils % 1.5 % (0-2.0) 01/29/17 07:00 Basophils % (Manual) 2 % (0-2.0) 01/28/17: Platelet Estimate Slt increased (NORMAL) 01/28/17: Platelet Comment Few large plts 01/28/17: CMP Sodium 133 mmol/L (136-145) L 01/29/17 07:00 Potassium 4.2 mmol/L (3.5-5.1) 01/29/17 07:00 Chloride 99 mmol/L (98-107) 01/29/17 07:00 Carbon Dioxide 27 mmol/L (22-28) 01/29/17 07:00 Anion Gap 7 (8-16) L 01/29/17 07:00 BUN 14 mg/dl (7-18) D 01/29/17 07:00 Creatinine 0.9 mg/dl (0.6-1.3) 01/29/17 07:00 Creat Clearance w eGFR > 60 (>60) 01/28/17 21:25 POC Glucometer 98 UNITS (()) 01/31/17 06:47 Random Glucose 114 mg/dl (74-106) H D 01/29/17 07:00 Hemoglobin A1c % 9.5 % (4.8-6.0) H 01/29/17 07:00 Calcium 8.5 mg/dl (8.4-10.2) 01/29/17 07:00 Phosphorus 3.4 mg/dl (2.5-4.6) 01/29/17 07:00 Magnesium 2.1 mg/dL (1.8-2.4) 01/29/17 07:00 Total Bilirubin 0.8 mg/dl (0.2-1.0) 01/28/17 21:25 AST 36 U/L (10-42) 01/28/17 21:25 ALT 51 U/L (10-40) H 01/28/17 21:25 Alkaline Phosphatase 96 U/L (32-92) H 01/28/17 21:25 Total Protein 8.0 g/dl (6.4-8.3) 01/28/17 21:25 Albumin 3.5 g/dl (3.5-5.0) 01/28/17 21:25 HOSPITAL COURSE: Date of Admission:01/28/17 Date of Discharge: 01/31/17 Minutes to complete discharge: 45 Discharge Summary Reason For Visit: HIGH BLOOD SUGAR Current Active Problems Cystitis (Acute) Dehydration (Acute) Diabetes 1.5, managed as type 1 (Acute) Hyperglycemia (Acute) Pneumonia (Acute) Weakness (Acute) Condition: Stable - Home Medications Comprehensive Discharge Medication List: Ambulatory Orders Aspirin [ASA -] 81 mg PO DAILY 01/28/17 Insulin NPH [Novolin N Vial] 30 units SQ AM 01/28/17 Insulin Regular [NovoLIN R] 20 unit SQ AM 01/28/17 Simvastatin [Zocor -] 40 mg PO HS 01/28/17
== END 2017-01-31 13:15 | disposition home or self-care (01) ==
LOC: FER 21:08 → FM/S 22:58
PROVIDERS: ADMIT Internal Medicine; ATTEND Nurse Practitioner Family
PROC: 3E03329 Introduction of Other Anti-infective into Peripheral Vein, Percutaneous Approach (ICD-10-PCS; principal; 2017-01-28)
PROC: 3E0337Z Introduction of Electrolytic and Water Balance Substance into Peripheral Vein, Percutaneous Approach (ICD-10-PCS; 2017-01-28)
PROC: 3E013VG Introduction of Insulin into Subcutaneous Tissue, Percutaneous Approach (ICD-10-PCS; 2017-01-28)
DX: E86.0 Dehydration (principal); J18.9 Pneumonia, unspecified organism; E10.65 Type 1 diabetes mellitus with hyperglycemia; N30.90 Cystitis, unspecified without hematuria; R53.1 Weakness; E78.5 Hyperlipidemia, unspecified; Z79.82 Long term (current) use of aspirin; Z79.84 Long term (current) use of oral hypoglycemic drugs
CPT/HCPCS: 36415; 71020-TC; 71250-TC; 80048; 80053; 81003; 81015; 83036; 83735; 84100; 85025; 87086; 87899; 93005; 96361; 96365; 96367; 96372; 99283-25; G0378; J1644

== ENCOUNTER 2019-01-21 11:22 | Emergency (ER) | payer OTHER ==
[2019-01-21 11:43] VITALS: BP 162/93; TEMP 98.2; BMI 23.3
[2019-01-21] MEDS ORDERED: IBUPROFEN 600 MG TABLET (FP) PO ONE ×2 (11:56→12:02)
--- NOTE | 2019-01-21 12:09 | PDOC ---
History of Present Illness - General Chief Complaint: Pain Stated Complaint: BUTTOCK PAIN Time Seen by Provider: 01/21/19 11:34 History Source: Patient Exam Limitations: No Limitations - History of Present Illness Initial Comments: 01/21/19 11:57 68 yo male pmh IDDM presents to the ED after having left buttock pain. Pt admits to doing new exercises including squats 2 weeks ago with noted pain. The pain became intense 1 week ago when getting up out of his car, located left buttock to the piriformis, pain described as sharp and stabbing, non radiating. Denies abdominal pain, weakness or sensory changes into left leg, changes in bowel or bladder habits including incontinence, hx of CA, F/C/N/V, SOB, CP Past History - Past Medical History Allergies/Adverse Reactions: Allergies Allergy/AdvReac Type Severity Reaction Status Date / Time No Known Allergies Allergy Verified 05/30/17 10:21 Home Medications: Ambulatory Orders Insulin NPH [Novolin N Vial] 25 units SQ AM 01/28/17 Insulin Regular [NovoLIN R] 0 unit SQ AM 01/28/17 Lidocaine 5% Patch [Lidoderm Patch -] 1 patch TP DAILY #7 patch 01/21/19 COPD: No DVT: No Diabetes: Yes HTN: Yes Hypercholesterolemia: Yes - Psycho Social/Smoking Cessation Hx Smoking History: Never smoked Have you smoked in the past 12 months: No Hx Alcohol Use: Yes (OCCASIONAL) Drug/Substance Use Hx: No Substance Use Type: None Review of Systems - Review of Systems Constitutional: No: Chills, Fever Respiratory: No: Shortness of Breath Cardiac (ROS): No: Chest Pain ABD/GI: No: Constipated, Diarrhea, Nausea, Vomiting : No: Burning, Dysuria, Frequency, Flank Pain Musculoskeletal: Yes: Other (left bttock pain). No: Back Pain, Muscle Weakness Integumentary: No: Change in Color, Lesions Neurological: No: Numbness, Paresthesia, Weakness, Unsteady Gait, Ataxia, Dizziness *Physical Exam - Vital Signs Last Vital Signs Temp Pulse Resp BP Pulse Ox 98.2 F 102 H 18 162/93 100 01/21/19 11:29 01/21/19 11:29 01/21/19 11:29 01/21/19 11:29 01/21/19 11:29 - Physical Exam General Appearance: Yes: Nourished, Appropriately Dressed. No: Apparent Distress HEENT: positive: EOMI Neck: positive: Supple. negative: Carotid bruit Respiratory/Chest: positive: Lungs Clear, Normal Breath Sounds. negative: Accessory Muscle Use, Crackles, Rales, Rhonchi, Stridor Cardiovascular: positive: Regular Rhythm, S1, S2, Tachycardia. negative: Edema , JVD, Murmur Vascular Pulses: Dorsalis-Pedis (R): 4+, Doralis-Pedis (L): 4+ Gastrointestinal/Abdominal: positive: Flat, Soft. negative: Pulsatile Mass, Distended, Guarding, Rebound, Tenderness Musculoskeletal: negative: CVA Tenderness Extremity: positive: Normal Capillary Refill, Normal Inspection, Pelvis Stable, Other (no midline spine tenderness). negative: Normal Range of Motion (reduced hip flexion due to pain), Swelling, Calf Tenderness Integumentary: positive: Normal Color, Dry, Warm Neurologic: positive: Fully Oriented, Alert, Normal Mood/Affect, Normal Response , Motor Strength 5/5. negative: Numbness, Sensory Deficit ED Treatment Course - RADIOLOGY Radiology Studies Ordered: Category Date Time Status SPINE-LUMBAR SACRAL [RAD] Stat Radiology 01/21/19 11:55 Ordered Medical Decision Making - Medical Decision Making 01/21/19 13:10 68 yo male pmh IDDM presents to the ED after having left buttock pain. Pt admits to doing new exercises including squats 2 weeks ago with noted pain. The pain became intense 1 week ago when getting up out of his car, located left buttock to the piriformis, pain described as sharp and stabbing, non radiating. Denies abdominal pain, weakness or sensory changes into left leg, changes in bowel or bladder habits including incontinence, hx of CA, F/C/N/V, SOB, CP vitals show HR 102, likely due to pain and will reassess Pt has focal pain to the left piriformis on palpation. Neg radiating pain, no weakness or pulse difference between right and left DP. Neg straight leg raise test Pt likely suffering from muscle strain. Motrin and lidoderm patch given with improvement in pain X ray neg for fractures, arthritis or concerning lesions will give lidooderm patch and ortho for f/u with strict return precautions Discharge - Discharge Information Problems reviewed: Yes Clinical Impression/Diagnosis: Piriformis muscle pain Condition: Good Disposition: HOME - Admission No - Additional Discharge Information Prescriptions: Lidocaine 5% Patch [Lidoderm Patch -] 1 patch TP DAILY #7 patch - Follow up/Referral Referrals: Nato Loera [Primary Care Provider] - Kendell Ramirez MD [Staff Physician] - - Patient Discharge Instructions Patient Printed Discharge Instructions: DI for Low Back Pain, Lidocaine Transdermal Patch Additional Instructions: Please see your primary doctor within the next 48 hours. Make an appointment to see the Orthopedic doctor if the pain does not improve. Take over the counter Ibuprofen and use the lidoderm patch as prescribed. Instructions on how to use and to dispose of the patch are in the packet. Return to the ER for new or concerning symptoms including but not limited to: weakness or sensory changes into your legs, inability to walk. Thank you - Post Discharge Activity
--- NOTE | 2019-01-21 12:41 | PDOC ---
Attending Attestation - Resident Resident Name: Jaskaran Redmond - ED Attending Attestation I have performed the following: I have examined & evaluated the patient, The case was reviewed & discussed with the resident, I agree w/resident's findings & plan, Exceptions are as noted - HPI HPI: 01/21/19 12:41 68 M with h/o DM presenting to ED with L buttock pain. Pt states that it started 2 weeks ago when he was doing squats. Pt reports mild persistent pain that was acutely worsened a week ago when he was getting out of his car. Denies any falls/trauma. States the pain is sharp, does not radiate to his back or leg. No abdominal pain. No weakness/numbness in either leg. No incontinence. - Physicial Exam PE: 01/21/19 12:42 "GENERAL: Awake, alert, and fully oriented, in no acute distress. HEAD: No signs of trauma EYES: PERRLA, EOMI, sclera anicteric, conjunctiva clear ENT: Auricles normal inspection, hearing grossly normal, nares patent, oropharynx clear without exudates. Moist mucosa NECK: Nontender, no stepoffs, Normal ROM, supple, no lymphadenopathy, JVD, or masses LUNGS: Breath sounds equal, clear to auscultation bilaterally. No wheezes, and no crackles HEART: Regular rate and rhythm, normal S1 and S2, no murmurs, rubs or gallops ABDOMEN: Soft, nontender, normoactive bowel sounds. No guarding, no rebound. No masses EXTREMITIES: Normal range of motion, no edema. No clubbing or cyanosis. No cords, erythema, or tenderness NEUROLOGICAL: Cranial nerves II through XII intact. 5/5 strength and sensation in all extremities, Normal speech, normal gait, normal cerebellar function SKIN: Warm, Dry, normal turgor, no rashes or lesions noted. BACK: + TTP over L piriformis, no midline tenderness, no stepoffs - Medical Decision Making 01/21/19 12:44 68 M with L buttock pain. Suspect sciatica vs piriformis pain. No evidence of cord compression/cauda equina. Distal pulses, sensation, and strength intact. - XR - Pain control XR unremarkable Pt to f/u with ortho Pt is well appearing, with normal vitals. Clinically stable for DC at this time. I discussed the physical exam findings, ancillary test results and final diagnoses with the patient. I answered all of the patient's questions. The patient was satisfied with the care received and felt comfortable with the discharge plan and treatment plan. The patient agrees to follow up with the primary care physician within 24-72 hours.
[2019-01-21] MEDS ORDERED: LIDOCAINE 5% TOPICAL PATCH TP ONE (13:09)
[2019-01-21] MEDS ORDERED: LIDOCAINE 5% TOPICAL PATCH ONE (13:12)
[2019-01-21 13:13] VITALS: PULSE 91
[2019-01-21] MEDS ORDERED: LIDOCAINE PATCH REMOVAL MC SCH (22:00)
== END 2019-01-21 13:25 | disposition home or self-care (01) ==
LOC: FER 11:22
DX: M79.18 Myalgia, other site (principal); E11.9 Type 2 diabetes mellitus without complications; I10 Essential (primary) hypertension; E78.00 Pure hypercholesterolemia, unspecified; Z79.4 Long term (current) use of insulin
CPT/HCPCS: 72100-TC-FY; 99282-25

== ENCOUNTER 2020-03-07 09:26 | Emergency (ER) | payer OTHER ==
[2020-03-07 09:42] VITALS: BP 139/78; PULSE 103; TEMP 99.1; BMI 23.6
[2020-03-07 10:57] LABS: ALBUMIN 3.7 g/dl (3.4-5.0); BILIRUBIN,TOTAL 0.8 mg/dl (0.2-1); CALCIUM 8.6 mg/dl (8.5-10); CREATININE 1.3 mg/dl (0.55-1.3); POTASSIUM 4.5 mmol/L (3.5-5.1); TOT PROT 7.1 g/dl (6.4-8.2)
[2020-03-07 11:31] LABS: BASO % 0.7 % (0-2.0); EOS % 3.9 % (0-4.5); HEMATOCRIT 39.3 % (35.4-49); HEMOGLOBIN 12.2 GM/dl (11.7-16.9); LYMPH % 24.6 % (8-40); MCH 27.2 pg (25.7-33.7); MCHC 31.1 g/dl (32.0-35.9); MEAN CELL VOLUME 87.6 fl (80-96); MEAN PLT VOLUME 9.3 fl (7.5-11.1); NEUT % 64.8 % (42.8-82.8); PLATELET COUNT 245 K/MM3 (134-434); RBC 4.48 M/mm3 (4.00-5.60); RDW 13.7 % (11.9-15.9)
== END 2020-03-07 12:55 | disposition home or self-care (01) ==
LOC: FER 09:26
DX: E11.65 Type 2 diabetes mellitus with hyperglycemia (principal)
CPT/HCPCS: 36415; 72170-TC-FY; 72202-TC-FY; 72220-TC-FY; 80053; 81003; 85025; 87086; 99284-25; C9803; U0003

== ENCOUNTER 2020-04-01 08:55 | Emergency (ER) | payer OTHER ==
[2020-04-01 09:06] VITALS: BP 128/81; PULSE 92; TEMP 98.4; BMI 23.6
[2020-04-01] MEDS ORDERED: SODIUM CHLORIDE 0.9% 500 ML INFUS.BAG IV ONE ×2 (09:51→10:53)
[2020-04-01 10:26] LABS: HEMATOCRIT 42.5 % (35.4-49); HEMOGLOBIN 13.9 GM/dl (11.7-16.9); MCH 27.8 pg (25.7-33.7); MCHC 32.7 g/dl (32.0-35.9); MEAN CELL VOLUME 84.9 fl (80-96); MEAN PLT VOLUME 10.3 fl (7.5-11.1); PLATELET COUNT 128 K/MM3 (134-434); RDW 12.8 % (11.9-15.9); WHITE BLOOD COUNT 5.7 K/mm3 (4.0-10.8)
[2020-04-01 10:29] LABS: ALBUMIN 3.6 g/dl (3.4-5.0); BILIRUBIN,TOTAL 0.9 mg/dl (0.2-1); CALCIUM 8.6 mg/dl (8.5-10); CREATININE 1.3 mg/dl (0.55-1.3); TOT PROT 7.7 g/dl (6.4-8.2)
[2020-04-01] MEDS ORDERED: INSULIN REGULAR HUMAN 100 UNITS/ML *VIAL SQ ONE ×2 (10:53→13:53)
[2020-04-01] MEDS ORDERED: POTASSIUM CHLORIDE TABS 20 MEQ TABLET.ER (FP) PO ONE ×2 (10:53→11:02)
[2020-04-01 11:01] LABS: PLATELET ESTIMATE SLT DECREASE
[2020-04-01] MEDS ORDERED: INSULIN (NOVOLOG) ASPART 100 UNITS/ML 10ML VIAL ONE (11:02)
[2020-04-01 13:34] LABS: CALCIUM 7.9 mg/dl (8.5-10); CREATININE 1.1 mg/dl (0.55-1.3)
== END 2020-04-01 14:08 | disposition home or self-care (01) ==
LOC: FER 08:55
PROC: 3E023GC Introduction of Other Therapeutic Substance into Muscle, Percutaneous Approach (ICD-10-PCS; principal; 2020-04-01)
DX: E11.65 Type 2 diabetes mellitus with hyperglycemia (principal)
CPT/HCPCS: 36415; 71046-TC-FY; 80048; 80053; 82010; 82962; 84484; 85025; 93005; 99285-25; C9803; U0003

== ENCOUNTER 2020-04-07 01:44 | Emergency (ER) | payer OTHER ==
[2020-04-07 01:57] VITALS: TEMP 99; BMI 23.6
[2020-04-07] MEDS ORDERED: SODIUM CHLORIDE 1,000 ML IV ONE (02:08)
[2020-04-07] MEDS ORDERED: INSULIN REGULAR HUMAN 100 UNITS/ML *VIAL IVPUSH ONE (02:09)
[2020-04-07] MEDS ORDERED: INSULIN REGULAR HUMAN 100 UNITS/ML *VIAL ONE (02:17)
[2020-04-07 02:45] VITALS: BP 131/79; PULSE 88
[2020-04-07 03:23] LABS: BASO % 0.9 % (0-2.0); EOS % 0.1 % (0-4.5); HEMATOCRIT 39.7 % (35.4-49); HEMOGLOBIN 13.1 GM/dL (11.7-16.9); LYMPH % 20.5 % (8-40); MCH 27.2 pg (25.7-33.7); MCHC 32.9 g/dl (32.0-35.9); MEAN CELL VOLUME 82.5 fl (80-96); MEAN PLT VOLUME 9.8 fl (7.5-11.1); MONO % 15.3 % (3.8-10.2); NEUT % 63.2 % (42.8-82.8); PLATELET COUNT 189 K/MM3 (134-434); RBC 4.81 M/mm3 (4.00-5.60); RDW 13.9 % (11.9-15.9); WHITE BLOOD COUNT 5.7 K/mm3 (4.0-10.0)
[2020-04-07 03:27] LABS: EPI CELLS 34 /uL (0-25.1); HYALINE CASTS 1 /uL (0-3.1); URINE APPEARANCE CLEAR; URINE BACTERIA 317 /uL (0-1359); URINE BILIRUBIN NEGATIVE (NEGATIVE); URINE COLOR YELLOW; URINE GLUCOSE (UA) 3+ (NEGATIVE); URINE KETONE 3+ (NEGATIVE); URINE LEUK ESTERASE NEGATIVE (NEGATIVE); URINE NITRITE NEGATIVE (NEGATIVE); URINE PROTEIN 1+ (NEGATIVE); URINE RBC 5 /uL (0-23.9); URINE UROBILINOGEN 0.2 mg/dL (0.2-1.0); URINE WBC 39 /uL (0-25.8)
[2020-04-07 03:43] LABS: POTASSIUM 4.9 mmol/L (3.5-5.1)
[2020-04-07 03:45] LABS: CALCIUM 8.1 mg/dL (8.5-10.1)
[2020-04-07 03:46] LABS: BLOOD UREA NITROGEN 21.2 mg/dL (7-18)
[2020-04-07 03:49] LABS: CREATININE 1.2 mg/dL (0.55-1.3)
[2020-04-07 03:51] LABS: BILIRUBIN,TOTAL 0.8 mg/dL (0.2-1); TOT PROT 7.5 g/dl (6.4-8.2)
[2020-04-07 04:05] LABS: ANISOCYTOSIS 0; MACROCYTOSIS 0; OVALOCYTE 1+; PLATELET ESTIMATE NORMAL
== END 2020-04-07 04:25 | disposition home or self-care (01) ==
LOC: FER 01:44
PROC: 3E013VG Introduction of Insulin into Subcutaneous Tissue, Percutaneous Approach (ICD-10-PCS; principal; 2020-04-07)
PROC: 3E0337Z Introduction of Electrolytic and Water Balance Substance into Peripheral Vein, Percutaneous Approach (ICD-10-PCS; 2020-04-07)
DX: R73.9 Hyperglycemia, unspecified (principal)
CPT/HCPCS: 36415; 80053; 81003; 82962; 83605; 85025; 99284-25

== ENCOUNTER 2020-04-07 23:31 | Emergency (ER) | payer OTHER ==
[2020-04-07] MEDS ORDERED: SODIUM CHLORIDE 0.9% 500 ML INFUS.BAG IV ONE (23:42)
[2020-04-08 00:10] VITALS: BMI 23.6
[2020-04-08 00:16] LABS: BASO % 0.7 % (0-2.0); EOS % 0.6 % (0-4.5); HEMOGLOBIN 12.7 GM/dL (11.7-16.9); LYMPH % 28.5 % (8-40); MCH 27.6 pg (25.7-33.7); MCHC 33.5 g/dl (32.0-35.9); MEAN CELL VOLUME 82.5 fl (80-96); MEAN PLT VOLUME 9.2 fl (7.5-11.1); MONO % 10.2 % (3.8-10.2); PLATELET COUNT 228 K/MM3 (134-434); RDW 14.2 % (11.9-15.9); WHITE BLOOD COUNT 5.4 K/mm3 (4.0-10.0)
[2020-04-08] MEDS ORDERED: BAMLANIVIMAB 700 MG in SODIUM CHLORIDE 180 ML IVPB ONE (00:17)
[2020-04-08 00:25] LABS: CALCIUM 7.9 mg/dL (8.5-10.1)
[2020-04-08 00:26] LABS: BLOOD UREA NITROGEN 15.9 mg/dL (7-18)
[2020-04-08 00:29] LABS: CREATININE 1.1 mg/dL (0.55-1.3)
[2020-04-08 03:52] VITALS: BP 155/75; PULSE 91; TEMP 99.5
== END 2020-04-08 05:09 | disposition home or self-care (01) ==
LOC: JER 23:31
DX: U07.1 COVID-19 (principal); G93.3 Postviral and related fatigue syndromes
CPT/HCPCS: 36415; 80048; 82010; 85025; 99284-25; M0239; Q0239

== ENCOUNTER 2020-11-03 14:10 | Emergency (ER) | payer OTHER ==
[2020-11-03 14:16] VITALS: BP 154/90; TEMP 98.2; BMI 23.3
[2020-11-03] MEDS ORDERED: IBUPROFEN 400 MG TABLET (FP) PO ONE ×2 (14:29→14:36)
[2020-11-03] MEDS ORDERED: ACETAMINOPHEN 325 MG TABLET (FP) PO ONE (14:29)
[2020-11-03] MEDS ORDERED: ACETAMINOPHEN 325 MG TABLET (FP) ONE (14:36)
[2020-11-03 16:05] VITALS: PULSE 88
== END 2020-11-03 16:04 | disposition home or self-care (01) ==
LOC: FER 14:10
DX: R07.81 Pleurodynia (principal); W19.XXXA Unspecified fall, initial encounter
CPT/HCPCS: 71046-TC-FY; 99283-25

== ENCOUNTER 2020-11-30 09:50 | Emergency (ER) | payer OTHER ==
[2020-11-30 09:59] VITALS: BP 132/73; PULSE 96; TEMP 98.2; BMI 23.6
[2020-11-30] MEDS ORDERED: METHOCARBAMOL 500 MG TABLET PO ONE (10:12)
[2020-11-30] MEDS ORDERED: METHOCARBAMOL 500 MG TABLET ONE (10:19)
== END 2020-11-30 11:35 | disposition home or self-care (01) ==
LOC: FER 09:50
DX: S22.41XA Multiple fractures of ribs, right side, initial encounter for closed fracture (principal); W01.0XXA Fall on same level from slipping, tripping and stumbling without subsequent striking against object, initial encounter
CPT/HCPCS: 71101-TC-RT-FY; 81003; 81015; 99284-25; C9803; U0003; U0005

== ENCOUNTER 2020-12-22 12:58 | Emergency (ER) | payer OTHER ==
[2020-12-22 13:17] VITALS: BP 120/75; PULSE 77; TEMP 98.8; BMI 23.3
== END 2020-12-22 16:18 | disposition home or self-care (01) ==
LOC: FER 12:58
DX: S16.1XXA Strain of muscle, fascia and tendon at neck level, initial encounter (principal); Y99.9 Unspecified external cause status
CPT/HCPCS: 72050-TC-FY; 73030-TC-RT-FY; 82962; 99285-25

== ENCOUNTER 2021-03-15 11:21 | Emergency (ER) | payer OTHER ==
[2021-03-15 11:57] VITALS: TEMP 98.8; BMI 22.1
[2021-03-15] MEDS ORDERED: LACTATED RINGERS SOLUTION 1000 ML INFUS.BAG IV ONE (12:13)
[2021-03-15] MEDS ORDERED: INSULIN (NOVOLOG) ASPART 100 UNITS/ML 10ML VIAL SQ ONE (13:03)
[2021-03-15 13:09] LABS: ALBUMIN 3.5 g/dl (3.4-5.0); BILIRUBIN,TOTAL 1.5 mg/dl (0.2-1); CALCIUM 8.9 mg/dl (8.5-10); CREATININE 1.2 mg/dl (0.55-1.3); MAGNESIUM 2.1 mg/dL (1.8-2.4); TOT PROT 7.2 g/dl (6.4-8.2)
[2021-03-15] MEDS ORDERED: INSULIN (NOVOLOG) ASPART 100 UNITS/ML 10ML VIAL ONE (13:09)
[2021-03-15 13:24] VITALS: BP 142/69; PULSE 75
[2021-03-15 14:11] LABS: EPITHELIAL CELLS RARE /hpf
[2021-03-15 14:32] LABS: VENOUS BASE EXCESS -5.9 mmol/L (-2-2); VENOUS O2 SATURATION 73.6 % (70-80); VENOUS PCO2 42.9 mmHg (38-52); VENOUS PH 7.295 (7.310-7.410)
[2021-03-15 14:33] LABS: BASO % 0.3 % (0-2.0); EOS % 2.5 % (0-4.5); HEMATOCRIT 38.6 % (35.4-49); HEMOGLOBIN 12.6 GM/dL (11.7-16.9); LYMPH % 38.9 % (8-40); MCH 27.5 pg (25.7-33.7); MCHC 32.7 g/dl (32.0-35.9); MEAN CELL VOLUME 84.3 fl (80-96); MEAN PLT VOLUME 9.5 fl (7.5-11.1); MONO % 4.7 % (3.8-10.2); NEUT % 53.6 % (42.8-82.8); PLATELET COUNT 173 10^3/uL (134-434); RBC 4.57 M/mm3 (4.00-5.60); RDW 15.8 % (11.9-15.9); WHITE BLOOD COUNT 6.4 K/mm3 (4.0-10.0)
== END 2021-03-15 15:13 | disposition home or self-care (01) ==
LOC: FER 11:21
PROC: 3E023GC Introduction of Other Therapeutic Substance into Muscle, Percutaneous Approach (ICD-10-PCS; principal; 2021-03-15)
DX: E11.65 Type 2 diabetes mellitus with hyperglycemia (principal); R91.1 Solitary pulmonary nodule
CPT/HCPCS: 36415; 71045-TC-FY; 80053; 81003; 81015; 82010; 82803; 82962; 83735; 85025; 87086; 87804; 87807; 93005; 99285-25; C9803; U0003; U0005

== ENCOUNTER 2021-12-20 16:31 | Emergency (ER) | payer OTHER ==
[2021-12-20 16:48] VITALS: RESP 18
[2021-12-20] MEDS ORDERED: GLUCAGON 1 MG KIT ONE (16:51)
[2021-12-20 16:52] VITALS: BP 157/97; PULSE 86; TEMP 98.1; BMI 23.3
[2021-12-20 17:33] LABS: BASO % 0.4 % (0-2.0); EOS % 0.5 % (0-4.5); HEMOGLOBIN 11.5 GM/dL (11.7-16.9); LYMPH % 18.8 % (8-40); MCH 27.9 pg (25.7-33.7); MCHC 32.8 g/dl (32.0-35.9); MONO % 6.5 % (3.8-10.2); NEUT % 73.8 % (42.8-82.8); PLATELET COUNT 222 10^3/uL (134-434); RBC 4.12 M/mm3 (4.00-5.60); RDW 15.2 % (11.9-15.9); WHITE BLOOD COUNT 6.3 K/mm3 (4.0-10.0)
[2021-12-20 17:53] LABS: CALCIUM 8.6 mg/dL (8.5-10.1)
[2021-12-20 17:54] LABS: ALBUMIN 3.5 g/dl (3.4-5.0); BLOOD UREA NITROGEN 21.4 mg/dL (7-18)
[2021-12-20 17:58] LABS: BILIRUBIN,TOTAL 0.3 mg/dL (0.2-1); TOT PROT 7.4 g/dl (6.4-8.2)
[2021-12-20 19:15] LABS: URINE APPEARANCE CLEAR; URINE BILIRUBIN NEGATIVE (NEGATIVE); URINE COLOR YELLOW; URINE GLUCOSE (UA) 2+ (NEGATIVE); URINE KETONE 1+ (NEGATIVE); URINE LEUK ESTERASE NEGATIVE (NEGATIVE); URINE NITRITE NEGATIVE (NEGATIVE); URINE PROTEIN TRACE (NEGATIVE); URINE UROBILINOGEN 0.2 mg/dL (0.2-1.0)
== END 2021-12-20 19:30 | disposition home or self-care (01) ==
LOC: JER 16:31
DX: E11.649 Type 2 diabetes mellitus with hypoglycemia without coma (principal)
CPT/HCPCS: 36415; 71046-TC-FY; 80053; 81003; 82962; 83735; 85025; 87086; 93005; 93010; 99285-25

== ENCOUNTER 2022-04-02 14:35 | Emergency (ER) | payer OTHER ==
[2022-04-02 15:33] VITALS: BP 110/64; PULSE 83; RESP 16; TEMP 98.7; BMI 23.3
[2022-04-02] MEDS ORDERED: LIDOCAINE 5% TOPICAL PATCH TP ONE (15:39)
[2022-04-02] MEDS ORDERED: KETOROLAC TROMETHAMINE 30 MG/1 ML VIAL IVPUSH ONE (15:39)
[2022-04-02] MEDS ORDERED: LIDOCAINE 5% TOPICAL PATCH ONE (15:40)
[2022-04-02] MEDS ORDERED: KETOROLAC TROMETHAMINE 30 MG/1 ML VIAL ONE (15:40)
[2022-04-02] MEDS ORDERED: LIDOCAINE PATCH REMOVAL MC SCH (22:00)
== END 2022-04-02 16:36 | disposition home or self-care (01) ==
LOC: FER 14:35
PROC: 3E033GC Introduction of Other Therapeutic Substance into Peripheral Vein, Percutaneous Approach (ICD-10-PCS; principal; 2022-04-02)
DX: M54.42 Lumbago with sciatica, left side (principal)
CPT/HCPCS: 99284-25

== ENCOUNTER 2022-08-13 11:56 | Observation (INO) | payer OTHER ==
[2022-08-13] MEDS ORDERED: ACETAMINOPHEN 500 MG TABLET (FP) PO ONE (12:24)
[2022-08-13] MEDS ORDERED: LIDOCAINE 5% TOPICAL PATCH TP ONE (12:24)
[2022-08-13] MEDS ORDERED: LIDOCAINE 5% TOPICAL PATCH ONE (12:27)
[2022-08-13] MEDS ORDERED: ACETAMINOPHEN 500 MG TABLET (FP) ONE (12:27)
[2022-08-13 15:20] LABS: HEMATOCRIT 41.6 % (35.4-49); HEMOGLOBIN 13.7 G/dL (11.7-16.9); MCH 28.3 pg (25.7-33.7); MEAN CELL VOLUME 85.8 fl (80-96); MEAN PLT VOLUME 9.9 fl (7.5-11.1); RBC 4.85 10^6/uL (4.00-5.60); RDW 15.3 % (11.9-15.9); WHITE BLOOD COUNT 6.9 10^3/uL (4.0-10.8)
[2022-08-13 15:25] LABS: ALBUMIN 3.9 g/dl (3.4-5.0); BILIRUBIN,TOTAL 0.9 mg/dl (0.2-1); CALCIUM 9.1 mg/dl (8.5-10); CREATININE 0.9 mg/dl (0.55-1.3); POTASSIUM 4.6 mmol/L (3.5-5.1); TOT PROT 7.8 g/dl (6.4-8.2)
[2022-08-13 16:01] LABS: PLATELET ESTIMATE ADEQUATE
[2022-08-13] MEDS ORDERED: ACETAMINOPHEN 325 MG TABLET (FP) PO PRN (16:32)
[2022-08-13] MEDS ORDERED: LACTATED RINGERS SOLUTION 1,000 ML IV SCH (16:45)
[2022-08-13 17:48] VITALS: BMI 21.3
[2022-08-13] MEDS: INSULIN SLIDING SCALE (NOVOLOG) 1 VIAL SQ SCH (18:09)
[2022-08-13] MEDS: KETOROLAC TROMETHAMINE 15 MG/ML VIAL IVPUSH PRN (20:00)
[2022-08-13] MEDS: LIDOCAINE PATCH REMOVAL MC SCH (22:25)
[2022-08-14] MEDS: INSULIN SLIDING SCALE (NOVOLOG) 1 VIAL SQ SCH ×3 (06:39→16:33)
[2022-08-14 08:28] LABS: INR 0.93 (0.83-1.09); PROTHROMBIN TIME (PATIENT) 10.7 SEC (9.7-13.0)
[2022-08-14 08:31] LABS: ACTIVATED PTT 28.7 SECONDS (25.2-36.5)
[2022-08-14 08:43] LABS: ALBUMIN 3.1 g/dl (3.4-5.0); BILIRUBIN,TOTAL 0.6 mg/dl (0.2-1); CALCIUM 8.7 mg/dl (8.5-10); CREATININE 0.8 mg/dl (0.55-1.3); PHOSPHOROUS 3.5 mg/dl (2.5-4.9); POTASSIUM 4.4 mmol/L (3.5-5.1); TOT PROT 6.5 g/dl (6.4-8.2)
[2022-08-14] MEDS: ENOXAPARIN NA (PORCINE) 40 MG/0.4 ML DISP.SYRIN SQ SCH (09:29)
[2022-08-14] MEDS: KETOROLAC TROMETHAMINE 15 MG/ML VIAL IVPUSH PRN ×2 (09:29→23:07)
[2022-08-14 10:36] LABS: BASO % 0.3 % (0-2.0); EOS % 3.2 % (0-4.5); HEMATOCRIT 38.3 % (35.4-49); HEMOGLOBIN 12.8 GM/dL (11.7-16.9); LYMPH % 41.2 % (8-40); MCH 27.8 pg (25.7-33.7); MCHC 33.5 g/dl (32.0-35.9); MEAN CELL VOLUME 82.8 fl (80-96); MEAN PLT VOLUME 9.5 fl (7.5-11.1); MONO % 6.6 % (3.8-10.2); NEUT % 48.7 % (42.8-82.8); PLATELET COUNT 210 10^3/uL (134-434); RBC 4.62 M/mm3 (4.00-5.60); RDW 13.9 % (11.9-15.9); WHITE BLOOD COUNT 6.2 K/mm3 (4.0-10.0)
[2022-08-14] MEDS ORDERED: INSULIN (NOVOLOG) ASPART 100 UNITS/ML 10ML VIAL SQ ONE (22:50)
[2022-08-14] MEDS: LIDOCAINE PATCH REMOVAL MC SCH (23:03)
[2022-08-15] MEDS: INSULIN SLIDING SCALE (NOVOLOG) 1 VIAL SQ SCH ×2 (06:55→11:37)
[2022-08-15 08:43] LABS: BILIRUBIN,TOTAL 0.6 mg/dl (0.2-1); CALCIUM 8.7 mg/dl (8.5-10); CREATININE 0.8 mg/dl (0.55-1.3); POTASSIUM 4.5 mmol/L (3.5-5.1); TOT PROT 6.3 g/dl (6.4-8.2)
[2022-08-15 09:07] VITALS: TEMP 98.4
[2022-08-15] MEDS: KETOROLAC TROMETHAMINE 15 MG/ML VIAL IVPUSH PRN (09:50)
[2022-08-15] MEDS: ENOXAPARIN NA (PORCINE) 40 MG/0.4 ML DISP.SYRIN SQ SCH (09:50)
[2022-08-15] MEDS ORDERED: INSULIN (LEVEMIR) 100 UNITS/ML UNITS SQ SCH (10:00)
[2022-08-15 11:17] LABS: BASO % 0.4 % (0-2.0); EOS % 3.9 % (0-4.5); HEMATOCRIT 36.5 % (35.4-49); HEMOGLOBIN 12.2 GM/dL (11.7-16.9); LYMPH % 48.4 % (8-40); MCH 27.4 pg (25.7-33.7); MCHC 33.5 g/dl (32.0-35.9); MEAN CELL VOLUME 81.7 fl (80-96); MEAN PLT VOLUME 8.7 fl (7.5-11.1); MONO % 8.4 % (3.8-10.2); NEUT % 38.9 % (42.8-82.8); PLATELET COUNT 219 10^3/uL (134-434); RBC 4.47 M/mm3 (4.00-5.60); RDW 13.8 % (11.9-15.9); WHITE BLOOD COUNT 5.2 K/mm3 (4.0-10.0)
[2022-08-15 13:49] VITALS: BP 126/74; PULSE 88; RESP 17
== END 2022-08-15 15:13 | disposition home or self-care (01) ==
LOC: FER 11:56 → FM/S 13:45 → UNDOADMOB 16:07 → FM/S 16:07
PROVIDERS: ADMIT Internal Medicine
PROC: 3E013VG Introduction of Insulin into Subcutaneous Tissue, Percutaneous Approach (ICD-10-PCS; principal; 2022-08-13)
PROC: 3E0333Z Introduction of Anti-inflammatory into Peripheral Vein, Percutaneous Approach (ICD-10-PCS; 2022-08-13)
PROC: 3E0337Z Introduction of Electrolytic and Water Balance Substance into Peripheral Vein, Percutaneous Approach (ICD-10-PCS; 2022-08-13)
DX: R07.81 Pleurodynia (principal); R07.89 Other chest pain; E11.9 Type 2 diabetes mellitus without complications; W18.39XA Other fall on same level, initial encounter; Y93.89 Activity, other specified; Y92.89 Other specified places as the place of occurrence of the external cause
CPT/HCPCS: 36415; 70450-TC; 71250-TC; 72125-TC; 80053; 81003; 82962; 83735; 84100; 85025; 85027; 85610; 85730; 93005; 93306-TC; 96365; 96372; 96375; 97116-GP; 97161-GP; 99285-25; C9803-CS; G0378; U0003; U0005

== ENCOUNTER 2022-08-17 11:00 | Inpatient (IN) | payer OTHER ==
[2022-08-17] MEDS ORDERED: SODIUM CHLORIDE 0.9% 500 ML INFUS.BAG IV ONE (11:38)
[2022-08-17 11:43] LABS: BASO % 0.5 % (0-2.0); EOS % 0.1 % (0-4.5); HEMATOCRIT 37.7 % (35.4-49); HEMOGLOBIN 12.2 GM/dL (11.7-16.9); LYMPH % 10.4 % (8-40); MCH 26.9 pg (25.7-33.7); MCHC 32.4 g/dl (32.0-35.9); MEAN PLT VOLUME 7.9 fl (7.5-11.1); MONO % 5.5 % (3.8-10.2); NEUT % 83.5 % (42.8-82.8); PLATELET COUNT 290 10^3/uL (134-434); RBC 4.54 M/mm3 (4.00-5.60); WHITE BLOOD COUNT 10.2 K/mm3 (4.0-10.0)
[2022-08-17 11:45] LABS: VENOUS BASE EXCESS -14.1 mmol/L (-2-2); VENOUS O2 SATURATION 82.1 % (70-80); VENOUS PCO2 25.6 mmHg (38-52); VENOUS PH 7.258 (7.310-7.410)
[2022-08-17] MEDS ORDERED: NAPROXEN 500 MG TABLET PO ONE (11:50)
[2022-08-17] MEDS ORDERED: LIDOCAINE 5% TOPICAL PATCH TP ONE (11:50)
[2022-08-17] MEDS ORDERED: NAPROXEN 500 MG TABLET ONE (11:57)
[2022-08-17] MEDS ORDERED: LIDOCAINE 5% TOPICAL PATCH ONE (11:58)
[2022-08-17 12:02] LABS: CHLORIDE 104 mmol/L (98-107); POTASSIUM 4.3 mmol/L (3.5-5.1); SODIUM 136 mmol/L (136-145)
[2022-08-17 12:04] LABS: CALCIUM 9.3 mg/dL (8.5-10.1)
[2022-08-17 12:05] LABS: ALBUMIN 3.2 g/dl (3.4-5.0); ANION GAP 21 MMOL/L (8-16); BLOOD UREA NITROGEN 25.3 mg/dL (7-18); CO2 11 mmol/L (21-32); GLUCOSE,RANDOM 258 mg/dL (74-106); LIPASE 47 U/L (73-393); MAGNESIUM 2.2 mg/dL (1.8-2.4)
[2022-08-17 12:08] LABS: CREATININE 1.5 mg/dL (0.55-1.3); SGOT/AST 14 U/L (15-37); SGPT/ALT 19 U/L (13-61)
[2022-08-17 12:09] LABS: BILIRUBIN,TOTAL 0.7 mg/dL (0.2-1); TOT PROT 7.3 g/dl (6.4-8.2)
[2022-08-17 12:11] LABS: ALK PHOS 100 U/L (45-117)
[2022-08-17] MEDS ORDERED: D5-1/2NS+30 MEQ KCL - 30 MEQ/1,000 ML INFUS.BAG IV SCH ×3 (12:15→22:48)
[2022-08-17] MEDS ORDERED: INSULIN REGULAR 100 UNITS in SODIUM CHLORIDE 99 ML IVPB SCH (12:15)
[2022-08-17] MEDS ORDERED: DEXTROSE 5%-0.45% SALINE 1,000 ML with POTASSIUM CHLORIDE 30 MEQ IV SCH (12:48)
[2022-08-17] MEDS ORDERED: TAMSULOSIN HCL 0.4 MG CAP PO ONE (13:15)
[2022-08-17 13:58] LABS: POTASSIUM 4.6 mmol/L (3.5-5.1)
[2022-08-17 14:00] LABS: BLOOD UREA NITROGEN 25.1 mg/dL (7-18); CALCIUM 9.7 mg/dL (8.5-10.1)
[2022-08-17 14:04] LABS: CREATININE 1.4 mg/dL (0.55-1.3)
[2022-08-17 14:17] VITALS: BMI 20.2
[2022-08-17 18:17] LABS: POTASSIUM 4.7 mmol/L (3.5-5.1)
[2022-08-17 18:19] LABS: BLOOD UREA NITROGEN 23.1 mg/dL (7-18); CALCIUM 9.3 mg/dL (8.5-10.1)
[2022-08-17 18:19] LABS: PH,URINE 5.5 (5.0-8.0); URINE APPEARANCE CLEAR; URINE BILIRUBIN NEGATIVE (NEGATIVE); URINE COLOR YELLOW; URINE GLUCOSE (UA) 3+ (NEGATIVE); URINE KETONE 4+ (NEGATIVE); URINE LEUK ESTERASE NEGATIVE (NEGATIVE); URINE NITRITE NEGATIVE (NEGATIVE); URINE PROTEIN TRACE (NEGATIVE)
[2022-08-17 18:23] LABS: CREATININE 1.3 mg/dL (0.55-1.3)
[2022-08-17] MEDS ORDERED: LIDOCAINE PATCH REMOVAL MC ONE (22:00)
[2022-08-17] MEDS ORDERED: INSULIN REGULAR HUMAN 100 UNITS/ML *VIAL SQ STA (23:24)
[2022-08-17] MEDS ORDERED: SODIUM CHLORIDE 1,000 ML IV STA (23:27)
[2022-08-18] MEDS: INSULIN (NOVOLOG MIX 70/30) 100 UNITS/ML MDV SQ SCH ×2 (06:58→10:07)
[2022-08-18] MEDS: INSULIN SLIDING SCALE (NOVOLOG) 1 VIAL SQ SCH ×4 (07:05→21:38)
[2022-08-18 07:59] LABS: MAGNESIUM 1.9 mg/dL (1.8-2.4)
[2022-08-18 08:03] LABS: PHOSPHOROUS 2.9 mg/dL (2.5-4.9)
[2022-08-18 08:11] LABS: POTASSIUM 4.7 mmol/L (3.5-5.1)
[2022-08-18 08:12] LABS: CALCIUM 8.8 mg/dL (8.5-10.1)
[2022-08-18 08:13] LABS: BLOOD UREA NITROGEN 18.5 mg/dL (7-18)
[2022-08-18 08:16] LABS: CREATININE 1.1 mg/dL (0.55-1.3)
[2022-08-18] MEDS: TAMSULOSIN HCL 0.4 MG CAP PO SCH (09:58)
[2022-08-18] MEDS: ENOXAPARIN NA (PORCINE) 40 MG/0.4 ML DISP.SYRIN SQ SCH (09:58)
[2022-08-18 12:49] LABS: POTASSIUM 4.5 mmol/L (3.5-5.1)
[2022-08-18 12:50] LABS: CALCIUM 9.1 mg/dL (8.5-10.1)
[2022-08-19] MEDS: INSULIN SLIDING SCALE (NOVOLOG) 1 VIAL SQ SCH ×4 (06:23→21:49)
[2022-08-19 07:55] LABS: HEMOGLOBIN 12.7 GM/dL (11.7-16.9); MCH 27.4 pg (25.7-33.7); MCHC 33.4 g/dl (32.0-35.9); RBC 4.64 M/mm3 (4.00-5.60); RDW 13.9 % (11.9-15.9); WHITE BLOOD COUNT 5.1 K/mm3 (4.0-10.0)
[2022-08-19 08:03] LABS: POTASSIUM 4.3 mmol/L (3.5-5.1)
[2022-08-19 08:10] LABS: BLOOD UREA NITROGEN 18.6 mg/dL (7-18); CALCIUM 8.8 mg/dL (8.5-10.1); MAGNESIUM 1.9 mg/dL (1.8-2.4)
[2022-08-19 08:13] LABS: PHOSPHOROUS 3.4 mg/dL (2.5-4.9)
[2022-08-19 08:14] LABS: CREATININE 0.9 mg/dL (0.55-1.3)
[2022-08-19 08:38] LABS: MEAN PLT VOLUME 8.6 fl (7.5-11.1); PLATELET COUNT 234 10^3/uL (134-434)
[2022-08-19] MEDS: TAMSULOSIN HCL 0.4 MG CAP PO SCH (09:21)
[2022-08-19] MEDS: ENOXAPARIN NA (PORCINE) 40 MG/0.4 ML DISP.SYRIN SQ SCH (09:21)
[2022-08-19] MEDS: INSULIN (NOVOLOG MIX 70/30) 100 UNITS/ML MDV SQ SCH (10:15)
[2022-08-19] MEDS ORDERED: INSULIN REGULAR HUMAN 100 UNITS/ML *VIAL SQ SCH (16:30)
[2022-08-19] MEDS: INSULIN (NOVOLOG) ASPART 100 UNITS/ML 10ML VIAL SQ SCH (16:54)
[2022-08-20] MEDS: INSULIN SLIDING SCALE (NOVOLOG) 1 VIAL SQ SCH ×2 (06:36→11:14)
[2022-08-20] MEDS ORDERED: INSULIN (NOVOLOG MIX 70/30) 100 UNITS/ML MDV SQ SCH ×2 (07:00)
[2022-08-20] MEDS: INSULIN (NOVOLOG) ASPART 100 UNITS/ML 10ML VIAL SQ SCH ×2 (07:20→11:58)
[2022-08-20] MEDS ORDERED: TAMSULOSIN HCL 0.4 MG CAP PO SCH (08:30)
[2022-08-20 09:35] LABS: CHLORIDE 103 mmol/L (98-107); SODIUM 134 mmol/L (136-145)
[2022-08-20 09:40] LABS: BLOOD UREA NITROGEN 16.2 mg/dL (7-18); CALCIUM 8.9 mg/dL (8.5-10.1); CO2 25 mmol/L (21-32); GLUCOSE,RANDOM 234 mg/dL (74-106)
[2022-08-20 09:47] LABS: ANION GAP 7 MMOL/L (8-16); POTASSIUM 6.4 mmol/L (3.5-5.1)
[2022-08-20] MEDS ORDERED: MULTIVITAMINS (DAILY MVI) TABLET (FP) PO SCH (10:00)
[2022-08-20] MEDS ORDERED: ENOXAPARIN NA (PORCINE) 40 MG/0.4 ML DISP.SYRIN SQ SCH (10:00)
[2022-08-20 15:39] VITALS: BP 114/63; PULSE 97; RESP 18; TEMP 98
== END 2022-08-20 16:30 | disposition home or self-care (01) | DRG 638 ==
LOC: JER 11:00 → JERBED 13:02 → JICU 14:15 → J5S 08-19 14:39
PROVIDERS: ADMIT Internal Medicine Pulmonary Disease; ATTEND Internal Medicine
DX: E10.10 Type 1 diabetes mellitus with ketoacidosis without coma (principal); N17.9 Acute kidney failure, unspecified; E78.5 Hyperlipidemia, unspecified; I10 Essential (primary) hypertension; N40.0 Benign prostatic hyperplasia without lower urinary tract symptoms; R07.81 Pleurodynia; E86.0 Dehydration
CPT/HCPCS: 0241U-QW; 36415; 71045-TC-FY; 80048; 80053; 81003; 82010; 82803; 82962; 83036; 83690; 83735; 84100; 84132; 84484; 85025; 85027; 87086; 93005; 93010; 97116-GP; 97162-GP; 99291

== ENCOUNTER 2024-02-13 11:34 | Inpatient (IN) | payer OTHER ==
[2024-02-13] MEDS ORDERED: MIDAZOLAM HCL 2 MG/2 ML SINGLE DOSE VIAL ONE ×2 (12:22→12:56)
[2024-02-13] MEDS ORDERED: CALCIUM GLUCONATE 10% - 1,000 MG/10 ML VIAL ONE ×2 (12:30→12:35)
[2024-02-13] MEDS ORDERED: EPINEPHrine 1:10,000 (P-F SYR) 1 MG/10 ML DISP.SYRIN ONE (12:41)
[2024-02-13] MEDS: SODIUM CHLORIDE 0.9% 500 ML INFUS.BAG IV ONE ×2 (12:44→14:45)
[2024-02-13] MEDS: MIDAZOLAM HCL 2 MG/2 ML SINGLE DOSE VIAL IVPUSH ONE ×2 (12:50→14:45)
[2024-02-13 12:51] LABS: HEMATOCRIT 40.3 % (35.4-49); MCH 27.7 pg (25.7-33.7); MCHC 27.2 g/dl (32.0-35.9); MEAN CELL VOLUME 101.6 fl (80-96); PLATELET COUNT 281 10^3/uL (134-434); RBC 3.97 M/mm3 (4.00-5.60); RDW 16.9 % (11.9-15.9); VENOUS BASE EXCESS -25.4 mmol/L (-2-2); VENOUS O2 SATURATION 95.7 % (70-80); VENOUS PCO2 18.4 mmHg (38-52); WHITE BLOOD COUNT 25.1 K/mm3 (4.0-10.0)
[2024-02-13 12:54] LABS: INR 0.85 (0.83-1.09); PROTHROMBIN TIME (PATIENT) 9.8 SEC (9.7-13.0)
[2024-02-13 12:57] LABS: ACTIVATED PTT 30.2 SECONDS (25.2-36.5)
[2024-02-13 12:59] LABS: VENOUS PH 6.992 (7.310-7.410)
[2024-02-13 13:05] LABS: CHLORIDE 82 mmol/L (98-107); SODIUM 124 mmol/L (136-145)
[2024-02-13 13:08] LABS: ALBUMIN 3.3 g/dl (3.4-5.0); BLOOD UREA NITROGEN 51.4 mg/dL (7-18); CALCIUM 9.6 mg/dL (8.5-10.1); CO2 5 mmol/L (21-32); MAGNESIUM 3.4 mg/dL (1.8-2.4)
[2024-02-13 13:10] LABS: SGPT/ALT 47 U/L (13-61)
[2024-02-13 13:11] LABS: CREATININE 3.5 mg/dL (0.55-1.3); SGOT/AST 29 U/L (15-37)
[2024-02-13 13:13] LABS: ALK PHOS 120 U/L (45-117); ANISOCYTOSIS 0; MACROCYTOSIS 0; TOT PROT 7.4 g/dl (6.4-8.2)
[2024-02-13 13:22] LABS: LACTIC ACID 12.6 mmol/L (0.4-2.0)
[2024-02-13 13:35] LABS: ANION GAP 37 mmol/L (4-13); GLUCOSE,RANDOM 1361 mg/dL (74-106)
[2024-02-13] MEDS ORDERED: SODIUM BICARBONATE 8.4% 50 MEQ/50 ML VIAL ONE (13:39)
[2024-02-13 13:40] LABS: EPI CELLS 22 /uL (0-25.1); HYALINE CASTS 0 /uL (0-3.1); URINE APPEARANCE CLOUDY; URINE BACTERIA 194 /uL (0-1359); URINE BILIRUBIN NEGATIVE (NEGATIVE); URINE COLOR YELLOW; URINE GLUCOSE (UA) 3+ (NEGATIVE); URINE KETONE 2+ (NEGATIVE); URINE LEUK ESTERASE NEGATIVE (NEGATIVE); URINE NITRITE NEGATIVE (NEGATIVE); URINE PROTEIN 1+ (NEGATIVE); URINE RBC 164 /uL (0-23.9); URINE UROBILINOGEN 0.2 mg/dL (0.2-1.0); URINE WBC 47 /uL (0-25.8)
[2024-02-13] MEDS ORDERED: SODIUM BICARBONATE 8.4% 50 MEQ/50 ML DISP.SYRIN ONE (13:40)
[2024-02-13] MEDS ORDERED: INSULIN ASPART SLIDING SCALE (NOVOLOG) 1 VIAL SQ ONE (13:44)
[2024-02-13] MEDS ORDERED: INSULIN REGULAR 100 UNITS in SODIUM CHLORIDE 99 ML IVPB SCH ×2 (13:45→21:19)
[2024-02-13] MEDS ORDERED: DEXTROSE 50%-WATER - 25 GM/50 ML VIAL IVPUSH PRN (13:48)
[2024-02-13] MEDS ORDERED: CEFTRIAXONE 1 GM/50 ML BAG ONE (14:44)
[2024-02-13] MEDS: CALCIUM GLUCONATE 10% - 1,000 MG/10 ML VIAL IVPB ONE (14:45)
[2024-02-13] MEDS: LACTATED RINGERS SOLUTION 1000 ML INFUS.BAG IV ONE (14:49)
[2024-02-13] MEDS: CEFTRIAXONE 1,000 MG in DEXTROSE 5%-WATER - 50 ML IVPB ONE (14:49)
[2024-02-13] MEDS: SODIUM BICARBONATE 8.4% 50 MEQ/50 ML DISP.SYRIN IVPUSH ONE (14:49)
[2024-02-13] MEDS: INSULIN REGULAR HUMAN 100 UNITS/ML *VIAL* (FOR IVP) IVPUSH ONE (14:49)
[2024-02-13 15:05] LABS: CHLORIDE 92 mmol/L (98-107); SODIUM 133 mmol/L (136-145)
[2024-02-13 15:07] LABS: POTASSIUM 6.7 mmol/L (3.5-5.1)
[2024-02-13 15:08] LABS: ANION GAP 32 mmol/L (4-13); BLOOD UREA NITROGEN 52.6 mg/dL (7-18); CO2 8 mmol/L (21-32)
[2024-02-13] MEDS: INSULIN REGULAR 100 UNITS in SODIUM CHLORIDE 99 ML IVPB SCH ×3 (15:10→23:47)
[2024-02-13 15:11] LABS: CREATININE 3.3 mg/dL (0.55-1.3); SGOT/AST 19 U/L (15-37); SGPT/ALT 43 U/L (13-61)
[2024-02-13 15:12] LABS: BILIRUBIN,TOTAL 0.5 mg/dL (0.2-1)
[2024-02-13 15:13] LABS: TOT PROT 6.5 g/dl (6.4-8.2)
[2024-02-13 15:14] LABS: ALK PHOS 104 U/L (45-117)
[2024-02-13 15:16] LABS: N-TERMINAL BNP 657.3 pg/ml (5-125)
[2024-02-13 15:18] LABS: GLUCOSE,RANDOM 1183 mg/dL (74-106)
[2024-02-13] MEDS ORDERED: DEXTROSE 50%-WATER - 25 GM/50 ML VIAL IVPUSH ONE (16:19)
[2024-02-13] MEDS ORDERED: INSULIN REGULAR HUMAN 100 UNITS/ML *VIAL ONE (16:31)
[2024-02-13] MEDS: INSULIN REGULAR HUMAN 100 UNITS/ML *VIAL IVPUSH ONE (16:42)
[2024-02-13] MEDS: CALCIUM GLUCONATE IN NACL 1 GM/50 ML BAG IVPB ONE (16:42)
[2024-02-13] MEDS ORDERED: PIPERACILLIN/TAZOBACTAM 2.25 GM VIAL IVPB ONE (17:07)
[2024-02-13] MEDS ORDERED: DEXTROSE 5%-WATER - 50 ML IVPB ONE (17:07)
[2024-02-13] MEDS: SODIUM CHLORIDE 1,000 ML IV SCH (17:08)
[2024-02-13] MEDS: PIPERACILLIN/TAZOB 2.25 GM 2.25 GM/50 ML BAG IVPB SCH (17:09)
[2024-02-13 17:13] LABS: CHLORIDE 98 mmol/L (98-107); POTASSIUM 5.1 mmol/L (3.5-5.1); SODIUM 137 mmol/L (136-145)
[2024-02-13 17:14] LABS: ANION GAP 27 mmol/L (4-13); BLOOD UREA NITROGEN 50.4 mg/dL (7-18); CO2 12 mmol/L (21-32)
[2024-02-13 17:18] LABS: CREATININE 3.1 mg/dL (0.55-1.3)
[2024-02-13 17:59] LABS: GLUCOSE,RANDOM 983 mg/dL (74-106)
[2024-02-13 17:59] LABS: LACTIC ACID 6.1 mmol/L (0.4-2.0)
[2024-02-13] MEDS ORDERED: PIPERACILLIN/TAZOB 2.25 GM 2.25 GM in DEXTROSE 5%-WATER - 50 ML IVPB SCH (18:00)
[2024-02-13 18:12] LABS: EPI CELLS 4 /uL (0-25.1); HYALINE CASTS 1 /uL (0-3.1); URINE APPEARANCE CLEAR; URINE BACTERIA 13 /uL (0-1359); URINE BILIRUBIN NEGATIVE (NEGATIVE); URINE COLOR YELLOW; URINE GLUCOSE (UA) 3+ (NEGATIVE); URINE KETONE 3+ (NEGATIVE); URINE LEUK ESTERASE NEGATIVE (NEGATIVE); URINE NITRITE NEGATIVE (NEGATIVE); URINE PROTEIN TRACE (NEGATIVE); URINE RBC 1381 /uL (0-23.9); URINE UROBILINOGEN 0.2 mg/dL (0.2-1.0); URINE WBC 17 /uL (0-25.8)
[2024-02-13 20:30] LABS: CHLORIDE 103 mmol/L (98-107); POTASSIUM 4.8 mmol/L (3.5-5.1); SODIUM 140 mmol/L (136-145)
[2024-02-13 20:35] LABS: CALCIUM 9.5 mg/dL (8.5-10.1); CREATININE 2.9 mg/dL (0.55-1.3)
[2024-02-13 20:36] LABS: ANION GAP 21 mmol/L (4-13); BLOOD UREA NITROGEN 47.1 mg/dL (7-18); CO2 15 mmol/L (21-32)
[2024-02-13 20:44] LABS: GLUCOSE,RANDOM 649 mg/dL (74-106)
[2024-02-13 21:04] LABS: CHLORIDE 108 mmol/L (98-107); SODIUM 144 mmol/L (136-145)
[2024-02-13 21:07] LABS: CALCIUM 9.6 mg/dL (8.5-10.1)
[2024-02-13 21:08] LABS: ANION GAP 14 mmol/L (4-13); BLOOD UREA NITROGEN 41.8 mg/dL (7-18); CO2 22 mmol/L (21-32)
[2024-02-13 21:11] LABS: CREATININE 2.8 mg/dL (0.55-1.3)
[2024-02-13] MEDS: SODIUM CHLORIDE 1,000 ML with POTASSIUM CHLORIDE 20 MEQ IV SCH (21:24)
[2024-02-13] MEDS: CHLORHEXIDINE GLUCONATE 4% CLEANSER FOR DECOLONIZATION TP SCH (21:25)
[2024-02-13] MEDS: MUPIROCIN 2% TOPICAL OINTMENT FOR DECOLONIZATION NS SCH (21:25)
[2024-02-13 21:26] LABS: GLUCOSE,RANDOM 450 mg/dL (74-106)
[2024-02-13 22:05] LABS: ARTERIAL BLD GAS O2 SATURATION 98.8 % (95-98); ARTERIAL BLOOD GAS BASE EXCESS -4.4 mmol/L (-2-2); ARTERIAL BLOOD GAS PO2 142.9 mmHg (80-100); ARTERIAL BLOOD GAS pH 7.371 (7.350-7.450)
[2024-02-13 22:06] LABS: ALLENS TEST POSITIVE
[2024-02-13] MEDS: D5-1/2NS+20 MEQ KCL - 20 MEQ/1,000 ML INFUS.BAG IV SCH (23:46)
[2024-02-14 00:35] LABS: VENOUS BASE EXCESS -0.9 mmol/L (-2-2); VENOUS PH 7.307 (7.310-7.410)
[2024-02-14 00:53] LABS: POTASSIUM 4.6 mmol/L (3.5-5.1)
[2024-02-14 00:55] LABS: ALBUMIN 3.4 g/dl (3.4-5.0); BLOOD UREA NITROGEN 37.9 mg/dL (7-18); CALCIUM 9.9 mg/dL (8.5-10.1); MAGNESIUM 2.8 mg/dL (1.8-2.4)
[2024-02-14 00:58] LABS: CREATININE 2.4 mg/dL (0.55-1.3)
[2024-02-14 00:59] LABS: PHOSPHOROUS 3.1 mg/dL (2.5-4.9)
[2024-02-14 01:00] LABS: BILIRUBIN,TOTAL 0.4 mg/dL (0.2-1); TOT PROT 7.3 g/dl (6.4-8.2)
[2024-02-14 01:03] LABS: LACTIC ACID 3.7 mmol/L (0.4-2.0)
[2024-02-14 07:57] LABS: POTASSIUM 4.7 mmol/L (3.5-5.1)
[2024-02-14 08:01] LABS: BLOOD UREA NITROGEN 31.2 mg/dL (7-18)
[2024-02-14 08:03] LABS: CALCIUM 9.6 mg/dL (8.5-10.1)
[2024-02-14 08:05] LABS: CREATININE 1.9 mg/dL (0.55-1.3)
[2024-02-14] MEDS ORDERED: D5-1/2NS+10 MEQ KCL - 10 MEQ/1,000 ML INFUS.BAG IV SCH (08:15)
[2024-02-14 09:56] LABS: BASO % 0.4 % (0-2.0); EOS % 0.1 % (0-4.5); HEMATOCRIT 35.1 % (35.4-49); HEMOGLOBIN 11.5 GM/dL (11.7-16.9); LYMPH % 7.1 % (8-40); MCH 28.4 pg (25.7-33.7); MCHC 32.7 g/dl (32.0-35.9); MEAN CELL VOLUME 86.8 fl (80-96); MEAN PLT VOLUME 8.7 fl (7.5-11.1); MONO % 7.3 % (3.8-10.2); NEUT % 85.1 % (42.8-82.8); PLATELET COUNT 208 10^3/uL (134-434); RBC 4.04 M/mm3 (4.00-5.60); RDW 15.1 % (11.9-15.9); WHITE BLOOD COUNT 13.6 K/mm3 (4.0-10.0)
[2024-02-14] MEDS ORDERED: INSULIN ASPART SLIDING SCALE (NOVOLOG) 1 VIAL SQ ONE (10:16)
[2024-02-14] MEDS: INSULIN ASPART SLIDING SCALE (NOVOLOG) 1 VIAL SQ SCH (10:19)
[2024-02-14] MEDS: SODIUM CHLORIDE 0.45% 1,000 ML IV SCH (13:08)
[2024-02-14] MEDS: PIPERACILLIN/TAZOB 2.25 GM 2.25 GM/50 ML BAG IVPB SCH (17:41)
[2024-02-14] MEDS ORDERED: PIPERACILLIN/TAZOB 2.25 GM 2.25 GM in DEXTROSE 5%-WATER - 50 ML IVPB SCH (18:00)
[2024-02-14] MEDS: INSULIN (NOVOLOG) ASPART 100 UNITS/ML 10ML VIAL SQ ONE (18:07)
[2024-02-14] MEDS: TAMSULOSIN HCL 0.4 MG CAP PO SCH (18:07)
[2024-02-14] MEDS: INSULIN (LEVEMIR) 100 UNITS/ML UNITS SQ SCH (21:01)
[2024-02-15 06:55] LABS: BASO % 1.1 % (0-2.0); EOS % 0.8 % (0-4.5); HEMOGLOBIN 10.8 GM/dL (11.7-16.9); LYMPH % 15.9 % (8-40); MCH 28.4 pg (25.7-33.7); MCHC 32.7 g/dl (32.0-35.9); MEAN CELL VOLUME 86.7 fl (80-96); MEAN PLT VOLUME 8.7 fl (7.5-11.1); MONO % 6.5 % (3.8-10.2); NEUT % 75.7 % (42.8-82.8); PLATELET COUNT 176 10^3/uL (134-434); RDW 15.4 % (11.9-15.9); WHITE BLOOD COUNT 9.5 K/mm3 (4.0-10.0)
[2024-02-15 07:16] LABS: POTASSIUM 3.8 mmol/L (3.5-5.1)
[2024-02-15] MEDS: INSULIN (LEVEMIR) 100 UNITS/ML UNITS SQ SCH (07:18)
[2024-02-15 07:22] LABS: CALCIUM 8.5 mg/dL (8.5-10.1)
[2024-02-15 07:23] LABS: BLOOD UREA NITROGEN 21.4 mg/dL (7-18); MAGNESIUM 2.1 mg/dL (1.8-2.4)
[2024-02-15 07:25] LABS: PHOSPHOROUS 2.5 mg/dL (2.5-4.9)
[2024-02-15 07:26] LABS: CREATININE 1.4 mg/dL (0.55-1.3)
[2024-02-15 07:27] LABS: ALBUMIN 2.5 g/dl (3.4-5.0); BILIRUBIN,TOTAL 0.5 mg/dL (0.2-1); TOT PROT 5.6 g/dl (6.4-8.2)
[2024-02-15] MEDS ORDERED: INSULIN ASPART SLIDING SCALE (NOVOLOG) 1 VIAL SQ ONE (08:47)
[2024-02-15 10:50] VITALS: BMI 19.8
[2024-02-15] MEDS ORDERED: LEVALBUTEROL HCL 0.31 MG/3 ML VIAL.NEB IH SCH (20:00)
[2024-02-16 09:56] LABS: BASO % 0.7 % (0-2.0); EOS % 1.1 % (0-4.5); HEMATOCRIT 32.1 % (35.4-49); HEMOGLOBIN 10.7 GM/dL (11.7-16.9); LYMPH % 22.8 % (8-40); MCH 28.8 pg (25.7-33.7); MCHC 33.4 g/dl (32.0-35.9); MEAN CELL VOLUME 86.2 fl (80-96); MEAN PLT VOLUME 8.4 fl (7.5-11.1); MONO % 7.3 % (3.8-10.2); NEUT % 68.1 % (42.8-82.8); PLATELET COUNT 149 10^3/uL (134-434); RBC 3.73 M/mm3 (4.00-5.60); RDW 15.2 % (11.9-15.9); WHITE BLOOD COUNT 6.1 K/mm3 (4.0-10.0)
[2024-02-16 10:15] LABS: POTASSIUM 3.9 mmol/L (3.5-5.1)
[2024-02-16 10:19] LABS: CALCIUM 8.6 mg/dL (8.5-10.1)
[2024-02-16 10:20] LABS: ALBUMIN 2.4 g/dl (3.4-5.0); BLOOD UREA NITROGEN 19.4 mg/dL (7-18); MAGNESIUM 2.1 mg/dL (1.8-2.4)
[2024-02-16 10:23] LABS: PHOSPHOROUS 2.7 mg/dL (2.5-4.9)
[2024-02-16 10:24] LABS: BILIRUBIN,TOTAL 0.8 mg/dL (0.2-1)
[2024-02-16 10:25] LABS: TOT PROT 5.4 g/dl (6.4-8.2)
[2024-02-16] MEDS: ENOXAPARIN NA (PORCINE) 40 MG/0.4 ML DISP.SYRIN SQ SCH (14:18)
[2024-02-16] MEDS ORDERED: DEXTROSE 50%-WATER - 25 GM/50 ML VIAL IVPUSH PRN (14:46)
[2024-02-16] MEDS: SODIUM CHLORIDE 0.45% 1,000 ML IV SCH (16:20)
[2024-02-16] MEDS: INSULIN ASPART SLIDING SCALE (NOVOLOG) 1 VIAL SQ SCH (16:20)
[2024-02-16] MEDS: INSULIN (LEVEMIR) 100 UNITS/ML UNITS SQ SCH (21:38)
[2024-02-17 03:38] VITALS: RESP 18
[2024-02-17 09:16] LABS: BASO % 0.6 % (0-2.0); EOS % 1.9 % (0-4.5); HEMATOCRIT 36.1 % (35.4-49); LYMPH % 27.5 % (8-40); MCH 28.7 pg (25.7-33.7); MCHC 33.4 g/dl (32.0-35.9); MEAN CELL VOLUME 86.1 fl (80-96); MEAN PLT VOLUME 8.5 fl (7.5-11.1); MONO % 7.2 % (3.8-10.2); NEUT % 62.8 % (42.8-82.8); PLATELET COUNT 169 10^3/uL (134-434); RBC 4.19 M/mm3 (4.00-5.60); RDW 14.9 % (11.9-15.9); WHITE BLOOD COUNT 7.6 K/mm3 (4.0-10.0)
[2024-02-17] MEDS: PANTOPRAZOLE 40 MG TABLET PO SCH (09:20)
[2024-02-17] MEDS: TAMSULOSIN HCL 0.4 MG CAP PO SCH (09:20)
[2024-02-17] MEDS ORDERED: INSULIN ASPART SLIDING SCALE (NOVOLOG) 1 VIAL SQ ONE ×2 (09:28→15:33)
[2024-02-17 09:43] LABS: ALBUMIN 2.6 g/dl (3.4-5.0)
[2024-02-17 09:44] LABS: BLOOD UREA NITROGEN 17.3 mg/dL (7-18); CALCIUM 9.2 mg/dL (8.5-10.1); MAGNESIUM 2.1 mg/dL (1.8-2.4)
[2024-02-17 09:47] LABS: PHOSPHOROUS 2.8 mg/dL (2.5-4.9)
[2024-02-17 09:48] LABS: BILIRUBIN,TOTAL 0.9 mg/dL (0.2-1); TOT PROT 6.1 g/dl (6.4-8.2)
[2024-02-17 14:30] VITALS: BP 159/112; PULSE 98; TEMP 98.4
== END 2024-02-17 18:00 | disposition home or self-care (01) | DRG 637 ==
LOC: JER 11:34 → JERBED 14:01 → JICU 15:24 → J6S 02-15 15:12
PROVIDERS: ADMIT Internal Medicine Pulmonary Disease; ATTEND Internal Medicine
DX: E11.10 Type 2 diabetes mellitus with ketoacidosis without coma (principal); G93.41 Metabolic encephalopathy; N17.9 Acute kidney failure, unspecified; E87.1 Hypo-osmolality and hyponatremia; E11.40 Type 2 diabetes mellitus with diabetic neuropathy, unspecified; E11.22 Type 2 diabetes mellitus with diabetic chronic kidney disease; I12.9 Hypertensive chronic kidney disease with stage 1 through stage 4 chronic kidney disease, or unspecified chronic kidney disease; N18.9 Chronic kidney disease, unspecified; E78.5 Hyperlipidemia, unspecified; E87.5 Hyperkalemia; D72.829 Elevated white blood cell count, unspecified; E86.0 Dehydration
CPT/HCPCS: 0241U-QW; 36415; 36600; 70450-TC; 71045-TC-FY; 72125-TC; 76775-TC; 80048; 80053; 81003; 82010; 82140; 82550; 82553; 82803; 82962; 83036; 83605; 83690; 83735; 83880; 83930; 84100; 84484; 85025; 85610; 85730; 87040; 87086; 87481; 93005; 93010; 97116-GP; 97161-GP; 99291